=== PATIENT | female | born 1970 | race Caucasian/White ===

== ENCOUNTER 2023-05-15 16:22 | Outpatient (OUT) | payer BC, SELFPAY | END 2023-05-15 16:23 | disposition home or self-care (01) | PROVIDERS: PCP Family Medicine | DX: E11.9 Type 2 diabetes mellitus without complications (principal) | CPT/HCPCS: G0108 ==

== ENCOUNTER 2023-06-06 21:16 | Outpatient (REF) | payer BC, SELFPAY ==
--- OUTSIDE RECORDS SUMMARY | 2023-06-06 21:21 | XMS_ITS | CCD ---
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 Name Role Phone Giorgio Rodriguez Primary Care Physician DR TERRY GILLIS Attending Unavailable DR TERRY GILLIS Consulting Unavailable DR TERRY GILLIS Admitting Unavailable DR GIORGIO RODRIGUEZ Primary Care Unavailable Allergies Allergy Classification Reported Allergen(s) Allergy Type Date of Onset Reaction(s) Facility (2 sources) Penicillin; Translations: [penicillin] Drug Allergy Unknown (qualifier value) [facility] (1 source) Penicillins Drug allergy (disorder) 4 [facility] Repository Medications Current Medications Medication Drug Class(es) Dates Sig (Normalized) Sig (Original) ciprofloxacin 500 mg oral tablet (1 source) Quinolone Antimicrobial Start: 07-27-2021 Cipro 500 mg Tab See Instructions, Take 1 tab day prior to procedure and 1 tab day of procdure - afterwards, # 2 tab(s), Refills(s) 0, Pharmacy: [facility]/pharmacy #[id number], 162, cm, 07/21/21 15:04:00 EDT, Height/Length Dosing, 90.9, kg, 07/21/21 15:04:00 EDT, Weight Dosing Start Date: 07/27/21 Status: Ordered glimepiride 4 mg oral tablet (2 sources) Sulfonylurea Start: 07-21-2021 take 1 mg by mouth once daily glimepiride 4 mg Tab mg tab(s), Oral, Daily, Refills(s) 0 Start Date: 07/21/21 Status: Ordered Problems Problem Classification Problem Date Documented Da te Episodic/Chronic Genitourinary symptoms and ill-defined conditions (3 sources) Stress incontinence (female) (male); Translations: [Genuine stress incontinence] Onset: 07-21-2021 Chronic Genitourinary symptoms and ill-defined conditions (4 sources) Urgent desire to urinate; Translations: [Urgency of urination] Onset: 07-21-2021 Episodic Other nervous system disorders (1 source) Chronic pain; Translations: [Other chronic pain] Onset: 08-12-2021 Chronic Other screening for suspected conditions (not mental disorders or infectious disease) (4 sources) Encounter for screening for malignant neoplasm of cervix; Translations: [ENC SCREENING MALIG NEOPLASM CERV] Onset: 06-01-2022 Episodic Unclassified (2 sources) Finding of sensation of bladder 07-21-2021 Urinary tract infections (3 sources) Cystitis; Translations: [Cystitis, unspecified without hematuria] Onset: 07-21-2021 Episodic Results Test Name Value Interpretation Reference Range Facil ity PAP ACOG PANEL 2: 30 to 65on 06-08-2022 . . Normal [facility] Comment on above: Result Comment: Perf ormed at: WB Performed By: #### [id number] #### [facility] [address] [place] [address] Dr. Jef Haro Age Gdln ACOG Testing 30-65 Normal [facility] Comment on above: Performed By: #### [id number] #### [facility] [address] [address] [address] Jef Haro DIAGNOSIS: Comment Normal [facility] Comment on above: Result Comment: NEGA TIVE FOR INTRAEPITHELIAL LESION OR MALIGNANCY. Performed at: WB Performed By: #### [id number] #### [facility] [address] [address] [address] Jef Haro HPV Aptima Negative Normal Negative [facility] Comment on above: Result Comment: This nucleic acid amplification test detects fourteen high-risk HPV types (16,18,31,33,35,39,45,51,52,56,58,59,66,68) without differentiation. Performed at: =G Performed By: #### [id number] #### [facility] [address] [address] [address] Jef Haro HPV Genotype Reflex Comment Normal [facility] Comment on above: Result Comment: Crit eria not met, HPV Genotype not performed. Performed at: WB Performed By: #### [id number] #### [facility] [address] [address] [address] Jef Haro Methodology: Comment Normal [facility] Comment on above: Result Comment: This liquid based ThinPrep(R) pap test was screened with the use of an image guided system. Performed at: WB Performed By: #### [id number] #### [facility] [address] [address] [address] Jef Haro Note: Comment Normal [facility] Comment on above: Result Comment: The Pap smear is a screening test designed to aid in the detection of premalignant and malignant conditions of the uterine cervix. It is not a diagnostic procedure and should not be used as the sole means of detecting cervical cancer. Both false-positive and false-negative reports do occur. . Performed at: WB Performed By: #### [id number] #### [facility] [address] [address] [address] Jef Haro Performed by: Comment Normal [facility] Comment on above: Result Comment: Yolie Lal, Household Personal Assistant (ASCP) Performed at: WB Performed By: #### [id number] #### [facility] [address] [place] [address] Dr. Jef Haro Specimen adequacy: Comment Normal [facility] Comment on above: Result Comment: Sati sfactory for evaluation. Endocervical and/or squamous metaplastic cells (endocervical component) are present. Performed at: WB Performed By: #### [id number] #### [facility] [address] [address] [address] Jef Haro Coding Summary.on 08-13-2021 Coding Summary. CD:[id number] Gh 0bWw+PGhlYWQ+MI8ACHJtC 66ihLUbmA9TE8vFGR7OFWR OBQFHRM9RYY3yuCM3TNxkX 2VybiAv DugkeNPbXD58XOw5VUI7nA bcPZzxvW5fjVCpV7d0ZjLf QH14jW02YSpgKZXqQoV7Pu ZpbjsgbWFy C4crWmPzuJPbBma+PHRhYm xlIHdpZHRoPScxMDAlJyBz oHnjCK4yUh9xSICnRIOqlC xhcHNlOiBj j0csPQSoYXvyVU3tzNnhK7 ZsvFY3HIAhk5v6Nn37aCG+ MHOoQOG3sZtuMMefk055Uw Sgc4byWHG0 jMEjUAtiRDE4I09dy4L6MO PsLLGkWCN6uZX9lV0jfUbs wejzF9NxhTYzJhP5WLL3tX FfpW9rnNah ypdtkV7gDfb+L66BQD3VBI UUNZ6GUzy1O5WuXtyzoAX+ SJ06FVTgVP36wCGwjMJcb3 kyrHe4VyHd MBBkBAG3hDmdKOtyz1SoBA OcA34vqAZas6L4DQUptRyr fQAlBmRmdJG5aP3fZRltyq cvf6eadwqt Fcmnt6jgcs58uV12O94nLR itNATbHNI8JNJgIXAzmXmc ky1gtC0sQr7+GWbla5xgt8 rgxVq7GmOk KJWkmzQltDhiIMB4c5FfZy 73I2YvbPpxv6YoHwp6do36 lXKxv7H3yTD8HLcoWTJiwK 4tNAtuYmM0 CYWtLeUpvR70oVIgCTeyVa 9zxGuxlYyqXR6pUEGcxtgk AMBgtJ5vBBZyjCFaeCjgBW 4wNTBpbjtm y502OuKoEJU7AKPueRIbL1 CxoB1oHiSbHLAxXKKcN3Fe rTKfBTcwN928LWfyRrK0VF ZefuIxH5Ro OOYbkJaxHnJ1s5Q8Os2Hp2 CgdhykUFK8QDstRLZ2OjGi QtNwQoT7N5YuWot5WRByxD ohVD7gN3Do QOXaufqcawaehVA2GFUdNW EscB49tNTdWYmtZd8rj3X8 w357YHEeEQDlvP21Rw1vaD ogMTBwdCBU fA5vcdryy6wfnjnnNmXmJT ImITm3DYr9AKOcbAwjMuVd PCL2KmU0VHR2vHZnnK4hzB wpixmmwW1b Oyc+N60miJ1xYES7VSY2jh uwSDUgceQgHZ15HK29F3Fy PjwvdGFibGU+PGRpdiBzdH vnIZ2rQgOp e4oqq0RiPOiuZ2OeJRMmAK kjGcn5TTWmPVE5oRM5eN9p TYFmAOljz7L0bAH0I5Symv Haib3fx6uo GJWxBDirW55uiJNut8C7ZZ FwpRK1WJDkvCpyRdLibI53 Oyc+CNIjqYrmt2PqDyvll3 kur0epjVr6 RrHyJYRripMqnWmfYQQ2u6 GsAu67B81iXUowOLRwWWIz KIOiDWIvuKtnpj9ezV5wMv 8+PGNvbCB3 zNA4nV8dILUvZzX3UDiwW3 12NzCdqMOvBsvtj7fxx8lm dQh0KxYaGTJxhlZxcNjpNI X0z7XtZv67 V04gPYrqLLSyIWUlHJUfRT UyqPnkol9euU0lEx2+PC9j g5fdiw20vI11iEL+PHRkIH Y2qLcvZSmy CUMqtX7cOBcuKbZ6PAFnDa VurV24yQOmXHohBe1neOcv oNhuFK9mPXCwyidas000Qr Tba9evNOGw qIPmMHjlQRR2U55zx4S5CP YbTORnYRO9rWF2iL6yeOsp bjogbGVmdDsgdmVydGljYW sxRBulO066 IHRvcDsnPlBhdGllbnQgTm SkYBv7Y3IwWkw1FZDprIns TL5wuRCxJJnvPi9unFawrB znXO2fVBWq kinvv355BzCee9xzYKHjaP DgVBrzGWI0P19qu6Z4SRXs SJZrGSI6rQD8sR3jeXkiuk ogbGVmdDsg jwEypZsuVLfnUGwpC495QY RvcDsnPkJpcnRoIERhdGU6 AG71GL58yNVgr9P6sDZ6G3 BhZGRpbmct txqeqXZ4SXTgQAHvnI07Pf 5pmWyvQl6kKEQjGFD2LPEc pEErX1BjgR3fImUfZGHoQJ VtI0HrdUDm RDxgT284LClhAyX2LQHnno SvB1JhDVAqqRvqXoM2w8A1 Bp7CE0C5OQ41NQ39pNVdn9 X5zZT2G2Ev MINwwayzdmzicHM4UTKgOC SggY80Gh2tyUfoSj0oLXHg WXG8LWJphYXiY6KkuZ8wLx AjMDAwMDAw J2YvjLPvFYllO269NPccXi F0WSSatdYkQ8ScMWDwrOao KiY6k0C3Ck5OCJj1AP92VT 10aTYwm8O0 hMC4R8BpZOBhccatsfjpvT R0PKHsKNWfaX95Rq8wnWpo Af4eCPBcWDN4NTFfbYRwK6 VlkM2wShSb DTSmCNYaH0TlyLGeGIktM5 78TLriEbJ9WTOtxjOdW3Rw QLWotVabJcT1y9Y8Rv3USA YsWL26UNF3 qQZ4ZK29CM24V8UdMsmrhV FibGU+PHRhYmxlIHdpZHRo HEffQAEzSnUgwFhwKL9pUi 9yZGVyLWNv sEsobOFvPtKel5fkLCVhAL fdNH6yyJekP7LtoEX6KNUn e3g6Vd85F33bI5RycQA+PG MhrUF6fRS2 oT6pZpCjZgG4FYcxR561Yu EayOLsEnkzs8hpw8wcrWb5 LqI0CPErkoQfiCtjXKF3y8 MyRv11S70g IHdpZHRoPSIxNSUiIHZhbG ljkm9rsE6tMs6+PGNvbCB3 xGU7iD9nCuVoSxO5XJtiK0 49InRvcCIv Uvgqi8mth0rfsKu9ElPwZU KokvIgwBixINC5g7KdZa30 C7QbvQkaw9XfSuw4st43jP Ufl6O0oWO5 G8PqOBIccrfpqAEimTohDX 4kZPUdmefbYGVzbH2sXKCa F1m1EaIyJiO9UAjyX2Cvkk M1KVClwJIm LJhfGGC3P24rr7O7LKBgVR JaJAY3cBM5lB5cgRvsrcjc bGVmdDsgdmVydGljYWwtYW vkF611XTPa tLjpOOKptW5jKLVdwKEnlM vpPZ8xCCAqfnzmTjBQILhh IENIRVJJRTwvdGQ+PHRkIH C3eArsQWva FFJtpW7eCMEvF8f9CjHwOj N5OHdxE6EySJIjuyzuVy56 wS4oTvTnWqJ2XBuiA9Nbvh H3ZBObyGMr KWpfODZ5M19vo6X6TLQpXZ TcFTJ1wBJ9yT7lcEleuhuh bGVmdDsgdmVydGljYWwtYW raX117ACNu wUbqVmKaEcDcEiD7XkO8S8 IqEds2QMWxfWyyPO1vhDXc XBgbNw4qmGorbFjdDC5kHG BpbjtwYWRk nV8yERAwtADpaYjaEB4nQM Plelzzb470UvTmHWS6YNSk iQAnB3OilW5hRfBnVEZlVS WdD0ExgFJl QNnrJ595XWdoJhE5OZCpzg VcQ0DqIWSgnNsmMpX8t9O9 Ft12YGCBXBZhpyoknSO+PH JqAHM3dCdp RAstZHZtaV4aIHKrJ1p4Gw JtXlP1YIagB2QgCINzqldv Pf56aN3vKuYeQrK7ZHlfL5 TukzP1SCHc mEUyCZglGTG0J05fg9M5BS BiGZPgBWU5oKJ7zU3biFjm bjogbGVmdDsgdmVydGljYW afVYzxC714 IHRvcDsnPkZlbWFsZTwvdG Q+AGOhKBP8lGvkBSpgRXMp vM2jYNCkY3t5DdAvGjO3PI wyI7VpWDDd vrocGm53dF2mMlRuSwA1HO esR8WjlwI9IEVfxUUhHIyi QWV2Z79mw3D5IEVrFZHwXY T4yWH8sD1f bGlnbjogbGVmdDsgdmVydG hbJAhaYHjjP617VTNqkXji Tt87aHNfsJxfsgI7D3UkJt wvdHI+PC90 VHLeBB86aFUyuMWie6fadR f6JhNcXXYkPVI0yCxnNZnk i0LcQADaD63hiEIec6A0HZ NvbGxhcHNl LtRciTA3wP9fCFikarict3 izghsjLgsnv9zuml10wQ85 J99wVWqyVBFwWATrBBFnYR VwyZmjzg5q jK2hYh0+UQAthZO2cXM4jS 8wLmPyBpC7SDulA441GxLt tSWcMwnga8tob5qvpVh2Ha IwJSIgdmFs qYhcOET8p5JaKa98G87uMB dpZHRoPSIyMCUiIHZhbGln zr3gmP9pYt7+WY8ks9icoz 77kG78bJQ+ RXJbJWU4vJekFEsnZVNayZ 2gNJtmWjJ6SIBrJcOtlZ68 qMMwNGtwGr4luAgeeDcrZK 4wNTBpbjtm g160HmMkz4hfBQXylRHxII cuJIZ0Y08oe4S1ZXRpMAZv BCM0pJS1iK2xuAmgpxiicM VmdDsgdmVy sOjvRMwmEWqnG971EDDxrV yvCfYamOWaI5qarbWGFW2k OjwvdGQ+SJXjXQD2sNpsWA ylATXgsQ2v OPAgK3u1UxVmUmL6JFnwR1 UolrT9TBMpxVVmBZZdnEGD oU3jfhoto1xyaijhGiOuEI CpQKb2PWb9 NOZvaBzzGqHnZEU4TpS2FN D7pVYsyH1sgOmititvwO3i Oyc+RklOOjwvdGQ+PHRkIH H4mEwkOKhm JYQldR6zFBShA2y5KyVpBa X9CTngZ2CglzA4ENPieQMs MTLvaXXEjI5kxucqg2anlg ogIzAwMDAw BSk5SPh7YFBsaZwyIePoCC F7EzG8NMY1xPJceA8jcOqs milgxB7jCax+TVJOOjwvdG Q+PHRkIHN0 oUnjTNncYXMwjJ3cJQMlW5 u7OrErOsD9XOzmB0ZlddG0 PFTdfJBeSEXnxWOFnU7kum mhg3sjezug ApLiHNIxODs4LYz7YWOccT shYyIkUUY5UhQ6MQT2tAJu aF0qoHdkuehfeH8tIij+UG I3WNI2DY55 PJ17R8XcLukqbDApbIE+PH RhYmxlIHdpZHRoPScxMDAl WkHhbVylQM3nKx7dVYAkOU NvbGxhcHNl OiBj (more content not included)... Normal [facility] Consent for Procedure/Surger yon 08-12-2021 Consent for Procedure/Surgery [id number] 0CD:127 Normal [facility] Consent for Treatmenton 07-24 Consent for Treatment [id number]#[id number] 0CD:127 Normal [facility] Inpatient Patient Summaryon 08-12-2021 Inpatient Patient Summary [address] [address] Clinical Summary Person Information Name: KAELA PRIETO Age: 51 Years : 1970 Sex: Female PCP: Giorgio Rodriguez MD Marital Status: Race: White Ethnicity: Non- or Language: Hungarian Visit Id: Visit Reason: URINARY INCONTINENCE UGERNECY AND INCOMPLETE EMPTYING Speciality: Acuity: Enc Type: Outpatient Med Service: Surgery Arrival: 08/12/2021 07:41:05 Discharge: Dispo Type: Address: [address] [place] [address] [address] [id number] Provider Notes: Diagnosis: Problems Active Cystitis Feeling of incomplete bladder emptying Stress incontinence Urinary urgency Smoking Status: Functional Status: Sensory Deficits: History of Falls: Mobility Assistance Prior to Admission: ADLs: Current Level of Assistance for Self-Care/Mobility: Cognitive Status: Allergies penicillin (Unknown) Laboratory or Other Results This Visit (last charted value for your 08/12/2021 visit) No Laboratory or Other Results This Visit Measurements: Height: 162 cm Weight: Blood Pressure: Not Valued / Not Valued BMI: Procedures No Procedures Documented Immunizations No Immunizations Documented This Visit Final Med List: ciprofloxacin (Cipro 500 mg Tab) Take 1 tab day prior to procedure and 1 tab day of procdure - afterwards. Refills: 0. glimepiride (glimepiride 4 mg Tab) By Mouth every day. Care Team Members: Attending Physician: Edwin FU MD Consulting Physician: Referring Physician: Edwin FU MD Follow up: With: Address: When: AUGUSTA CHAKRABORTY [address] [facility] [address] [place] [phone] Business (1) Comments: Please make an appointment with Maia Chakraborty for about 4 to 6 weeks from now. She can assess any improvement in the urinary symptoms. If the pelvic discomfort symptoms continue, perhaps we should consider some physical therapy in that area. Please finish your antibiotics and have a great day. Patient Education Information: EU - Cystoscopy with Urethral Dilation Discharge Instructions (Custom) Normal [facility] IntraOperative Documentson 0 08-12-2021 IntraOperative Documents [id number] 0CD:127 Normal [facility] Main OR Intraoperative Recor don 08-12-2021 Main OR Intraoperative Record IntraOp Document Type FTURO Summary Primary Physician: Edwin FU MD Finalized Date/Time: 08/12/21 08:30:44 Pt. Name: KAELA PRIETO/Sex: 1970 Female Med Rec #: [id number] Physician: Edwin FU MD Financial #: [id number] Pt. Type: O Room/Bed: / Admit/Disch: 08/12/21 07:41:05 - Institution: Case Times FTURO Entry 1 Patient Times In Room 08/12/21 08:16:00 Out Room 08/12/21 08:30:00 Procedure Times Start 08/12/21 08:20:00 Stop 08/12/21 08:27:00 Anesthesia Times Last Modified By: Jelly DELATORRE, TRINITYORMamta 08/12/21 08:29:44 Case Attendance FTURO Entry 1 Entry 2 Entry 3 Case Attendee Edwin FU MD, RN, TRINITYOR, Mamta Puri Becenti CLINICAL DATA ASSOCIATE, Haydee Roe Role Performed Surgeon - Primary Stockroom Worker - Primary Scrub - Primary Time In 08/12/21 08:16:00 08/12/21 08:16:00 08/12/21 08:16:00 Time Out 08/12/21 08:30:00 08/12/21 08:30:00 08/12/21 08:30:00 Procedure CYSTOSCOPY LOCAL WITH CYSTOSCOPY LOCAL WITH CYSTOSCOPY LOCAL WITH URETHRAL DILATION(.) URETHRAL DILATION(.) URETHRAL DILATION(.) Comments Last Modified By: RHYS Reaves RN, Lou Ann Blank RN, CNOR, Lou Ann Blank RN, CNOR, Lou Ann 08/12/21 08:29:45 08/12/21 08:29:45 08/12/21 08:29:45 Surgical Procedures FTURO Entry 1 Procedure Description Procedure CYSTOSCOPY LOCAL WITH Modifiers . URETHRAL DILATION Surgeon Description CYSTO URETHRAL DILATION W PELVIC EXAM Primary Procedure Yes Primary Surgeon Edwin FU MD Start 08/12/21 08:20:00 Stop 08/12/21 08:27:00 Anesthesia Type Local Surgical Service Urology Wound Class 2 - Clean-Contaminated Last Modified By: RHYS Reaves RN, Lou Ann 08/12/21 08:30:02 General Case Data FTURO Pre-Care Text: Classifies surgical wound, implements aseptic technique, initiates traffic control Entry 1 Case Information OR URO 1 FT Case Level None Wound Class 2 - Clean-Contaminated Specialty Urology Preop Diagnosis URINARY INCONTINENCE Postop Same As Preop No UGERNECY AND INCOMPLETE EMPTYING Postop Diagnosis URINARY INCONTINENCE Outcomes Met? Yes UGERNECY AND INCOMPLETE EMPTYING urethral stenosis Last Modified By: RHYS Reaves RN, Lou Ann 08/12/21 08:30:41 Post-Care Text: The patient is free from signs and symptoms of infection EU IntraOp - FTURO Pre-Care Text: Implements protective measures prior to operative or invasive procedure, confirms identity before the operative or invasive procedure, verifies operative procedure, surgical site, and laterality Entry 1 EU Perioperative Protocols Procedure(s) CYSTOSCOPY LOCAL WITH Patient Identity ID Band Check, Patient URETHRAL DILATION(.) Verified (select at Participation least 2): Consents / H and P HandP, Surgery/Procedure Operative Site N/A Verified Consent Marking Verified Surgical Site Yes Laterality Verified n/a Verified Procedure Verified Yes Correct Patient Yes Position Verified Availability Equipment, Medication Time Out Edwin FU MD, Verified (If Participants Jelly DELATORRE, TRINITYOR, Mamta Applicable) Teresa Puri CST, Gwen E Time Out Complete 08/12/21 08:18:00 Allergies Reviewed? Yes Allergies Reviewed Self/Patient With Body Position Low Lithotomy Prep Area perenium Prep Agents Betadine Solution Skin. Condition Warm, Unable to Description clohting on Visualize Additional None Specimens Collected Vitals - EU Blood Pressure 154/80 Pulse 80 bpm Respirations 16 br/min SPO2 EBL 0 IandO - EU Total Intake 0 mL Total Output 0 mL Outcomes Met? Yes Last Modified By: RHYS Reaves RN, Lou Ann 08/12/21 08:24:05 Post-Care Text: The patient is free from signs and symptoms of injury caused by extraneous objects Sign Out FTURO Entry 1 Before Patient Leaves OR Nurse verbally Yes Nurse verbally n/a confirms with the confirms with the team the name of team that the procedure(s) instrument, sponge, recorded and needle counts are correct (or N/A) Nurse verbally n/a Nurse verbally Yes confirms with the confirms with the team how the team whether there specimen is labeled are any equipment (including patient problems to be name), if applicable addressed Sign Out Complete 08/12/21 08:27:00 Last Modified By: RHYS Reaves RN, Lou Ann 08/12/21 08:27:32 Case Comments Finalized By: RHYS Reaves RN, Lou Ann Document Signatures Signed By: RHYS Reaves RN, Lou Ann 08/12/21 08:30 Normal [facility] Main OR Preoperative Recordo n 08-12-2021 Main OR Preoperative Record Holding Area Document Type FTURO Summary Primary Physician: Edwin FU MD Finalized Date/Time: 08/12/21 08:23:28 Pt. Name: KAELA PRIETO Krysta/Sex: 1970 Female Med Rec #: [id number] Physician: Edwin FU MD Financial #: [id number] Pt. Type: O Room/Bed: / Admit/Disch: 08/12/21 07:41:05 - Institution: Case Times Holding FTURO Pre-Care Text: Verifies consent for planned procedure, identifies individual values and wishes concerning care, includes family members in perioperative teaching Secures patient's records' belongings, and valuables, maintains patient's dignity and privacy, and maintains patient confidentiality Entry 1 In Holding 08/12/21 07:53:00 Outcomes Met? Yes Last Modified By: Denis Arias LPN 08/12/21 07:53:24 Post-Care Text: The patient participates in decisions affecting his or her perioperative plan of care The patient's right to privacy is maintained Surgery Checklist FTURO Entry 1 Patient Birthday, ID Band Procedure History and Physical, Identification: Check, Patient Verification: Surgical Consent, With Participation Patient NPO after Midnight: n/a Personal Items: Glasses, Jewelry Personal Items rings Complaints of Pain: No Comment: Skin Integrity Unable to Visualize Vitals - EU Blood Pressure 154/80 Pulse 80 bpm Respirations 16 br/min SPO2 RN Reviewed Yes Last Modified By: RHYS Reaves RN, Lou Ann 08/12/21 08:23:26 General Comments: Temp 36.1 Finalized By: RHYS Reaves RN, Lou Ann Document Signatures Signed By: RHYS Reaves RN, Lou Ann 08/12/21 08:23 Normal [facility] Operative Reporton 2 Operative Report Patient: ROBERT PRIETO Age: 51 years Sex: Female : 1970 Associated Diagnoses: None Author: Edwin FU MD Procedure Operative Information Details: Date/ Time: 08/12/2021 08:31:00. Pre-Op Dx: Stress Incontinence - N39.3, Urgency - R39.15, Urethral Stricture - Other Unspecified - N35.9. Post-Op Dx: Same. Anesthesia Type: Local. Procedure: Local Cystoscopy with Urethral Dilation. Complications: None. Risks/Benefits/Informe d Consent: Surgical risks, benefits, details of the procedure have been explained to the patient, Full informed consent has been obtained. Intraoperative Information Prepped: Patient is brought back to the endoscopy suite, Patient is placed in modified dorso/lithotomy position, Patient prepped in the usual fashion with Betadine solution, 2% Xylocaine Jelly is placed per Urethra, After waiting several minutes the Cystoscope is introduced. The Urethra is: Tight, Tight at 16 Fr. . The Bladder is: Normal, Trabeculated Mild (1), , but there are diffuse areas of raised, yellowish pink areas consistent with cystitis cystica. No tumor, no stones. . The ureteral orifices: Show efflux of clear urine. The Urethra was dilated to: 30 Pashto w/ sounds. Devices Implanted: None. Removal: Cystoscope is removed, The patient tolerated it well. Postoperative Information Discharge: Patient is discharged home with antibiotic coverage, Follow up arranged, F/U with Maia Chakraborty . Reassessment of urinary sx will take place. If the pelvic discomfort continues, perhaps some physical therapy (? trigger points) could be considered. Do not feel her pelvic symptoms are due to bladder etiology. , On exam, tender on vaginal exam, universally, including downward pressure towards rectum, and bilaterally, as well as anteriorly. . Normal [facility] Comment on above: Result Comment: Elec tronically Signed By: Edwin FU MD\.br\Date and Time Signed: 08/12/21 08:34 EDT Outpatient Surgery Discharge Instructionon 08-12-2021 Outpatient Surgery Discharge Instruction [address] [address] Patient Discharge Instructions PERSON INFORMATION Name: KAELA PRIETO Date of : 1970 Current Date: 08/12/2021 08:31:38 PHYSICIANS Admitting Physician: Edwin FU MD Comment: Discharge Diagnosis: KAELA PRIETO has been given the following list of follow-up instructions, prescriptions, and patient education materials: IF UNABLE TO CONTACT YOUR PHYSICIAN AND YOU FEEL IT IS AN EMERGENCY, GO TO THE NEAREST EMERGENCY ROOM OR CALL 911 Follow up: With: Address: When: AUGUSTA PALMER [address] [place] [phone] Business (1) Comments: Please make an appointment with Maia Chakraborty for about 4 to 6 weeks from now. She can assess any improvement in the urinary symptoms. If the pelvic discomfort symptoms continue, perhaps we should consider some physical therapy in that area. Please finish your antibiotics and have a great day. Comment: PATIENT EDUCATION INFORMATION Instructions: Cystoscopy with Urethral Dilation ? Voiding after the procedure: there may be some pain, urethral bleeding, burning, urgency, frequency and blood tinged urine following the procedure. These symptoms usually resolve within 2-5 days. Drink the amount of fluid it takes to keep the urine pink to yellow or clear in color. Drinking enough water and fluids will help to ease any discomfort after your procedure. ? If you are having problems that seem out of the ordinary, please call. ? If unable to contact your physician and you feel it is an emergency, go to the nearest emergency room or call 911 ? Diet ? you may resume your normal diet. ? Activity ? you may resume your normal activities ? Call if you have a fever over 100 degrees IDA Franks CHERIE, have received the attached patient education materials/instructions and have verbalized understanding: May we do a follow up call? Yes No I was present when discharge instructions were given Patient Signature Date Clinican/Nurse Signature ___ Date You may receive a survey from [facility] asking you to rate your care experience. Your feedback is important and will help us understand what we do well and how we can improve the quality of care we provide to you, your loved ones and our community. It?s an honor to serve you. Thank you for choosing [facility] Normal [facility] Formson 07-26-2021 Forms [id number] 0CD:127 Normal [facility] Physician Referralon 022 Physician Referral [id number] 01 [id number]:127 Normal [facility] Urology Office/Clinic Noteon 07-22-2021 Urology Office/Clinic Note Chief Complaint referred for incontinence, cystitis. HPI Staff Kaela is here today by [facility] for incontinence and chronic cystitis. PVR was 28ml. Dysuria: _Denies Incomplete bladder emptying: _Yes Hematuria: _Denies Frequency: _Every 2-3 hours Urgency: _Yes Nocturia: _2-3 times a night due to the urge. Stream: _steady until the end then it gets weak and dribbles Leaking: _Yes Post void dripping: _Yes Wearing pads/ Depends: _Denies Urge incontinence: _rarely Stress incontinence: _Yes Incontinence without Sensory Awareness: _Denies Abdominal pain: _Denies Flank pain: _Denies Sexual complaints: _Pt states sex has been painful for several years. History of Present Illness staff HPI reviewed and agree. Review of Systems PHQ Score Initial Depression Screen Score: 0 no fever, chills, malaise, myalgia. no rash/lesions. no chest pain, palpitations, or SOB. no abdominal pain, nausea, vomiting. no unilateral calf swelling, redness, pain Physical Exam Vitals & Measurements HR: 77(Peripheral) RR: 16 BP: 123/71 HT: 162.0 cm HT: 162 cm WT: 90.9 kg WT: 90.9 kg BMI: 34.64 General: nontoxic, NAD Mouth: moist mucosa Lungs: normal respiratory effort Cardio: regular rate, good distal perfusion Abdomen: nondistended, no suprapubic distention or tenderness, no CVA tenderness Neurologic: Grossly normal Skin: No rashes or suspicious lesions Assessment/Plan 1. Urinary urgency (R39.15: Urgency of urination) Moderate. occasional UUI if doesn't get to restroom in time. also has bothersome nocturia x2-3. Discussed with patient the bladder irritants to avoid. pt will think about if sx are bothersome enough that she would like to try any treatment (ie medication) assuming normal cysto 2. Stress incontinence (N39.3: Stress incontinence (female) (male)) Mild while coughing or sneezing. Mild. s/p hysterectomy about 3 yrs ago. discussed importance of pelvic floor health. declines formal PFPT. would like to attempt on her own at home using phone sarah we discussed. 3. Feeling of incomplete bladder emptying (R39.14: Feeling of incomplete bladder emptying) stream starts strong but dribbles at the end and starts/stops. has to lean forward and apply pressure to the bladder to feel she empties completely. PVR IO today was 28mL. Patient is able to urinate every 2-3 hours. 4. Cystitis (N30.90: Cystitis, unspecified without hematuria) Patient states during pelvic exam with Dr. Gillis bladder was tender when touched. She says this is the same area that is painful during intercourse. Dr Gillis told her she may have chronic cystitis causing the pain. Recommended for the patient to get a cystoscopy for further eval. Will discuss if any imaging warranted with MD. The risks and benefits for cystoscopy have been discussed. The risks include bleeding, infection, and irritation of the bladder and urinary channel, among others. The patient, after being informed of procedural details and after questions have been answered, wishes to proceed. Full informed consent has been obtained. Will order Local anesthesia. Discussed that if significant narrowing found may perform UD. Follow-up With When Contact Information AUGUSTA CHAKRABORTY PA-C, URL [address] [address] Business (1) Additional Instructions: Patient Education Overactive Bladder, Adult I, Concepcion Loza , personally scribed for Augusta Chakraborty on 07/21/2021 15:25:40. . Documentation recorded by the scribludin Loza accurately reflects the services(s) I performed and decisions made by me. Authenticated by Augusta Chakraborty PA-C on 07/21/2021 15:37:36. Problem List/Past Medical History Ongoing Cystitis Feeling of incomplete bladder emptying Stress incontinence Urinary urgency Historical No qualifying data Procedure/Surgical History Breast surgery, Hemorrhoid, Hysterectomy, Tonsillectomy. Medications glimepiride 4 mg Tab, Oral, Daily Allergies penicillin (Unknown) Social History Tobacco 10 or more cigarettes (1/2 pack or more)/day in last 30 days Tobacco Use:., 07/21/2021 Family History Diabetes mellitus type 2: Father and Brother. Heart disease: Father and Brother. High cholesterol: Father and Brother. Immunizations Vaccine Date Status SARS-CoV-2 (COVID-19) Ad26 vaccine 05/19/2021 Recorded SARS-CoV-2 (COVID-19) Ad26 vaccine 04/28/2021 Recorded Lab Results Ambulatory Point of Care Results Blood Urine Dipstick: Negative (07/21/21 14:54:00) Glucose Urine Dipstick: Negative (07/21/21 14:54:00) Ketones Urine Dipstick: Negative (07/21/21 14:54:00) Leukocytes Urine Dipstick: Negative (07/21/21 14:54:00) Nitrite Urine Dipstick: Negative (07/21/21 14:54:00) Protein Urine Dipstick: Negative (07/21/21 14:54:00) Specific [place] Urine Dipstick: 1.025 (07/21/21 14:54:00) Urine Appearance Urine Dipstick: Clear (06/24 (more content not included)... Normal [facility] Comment on above: Result Comment: Elec tronically Signed By: AUGUSTA CHAKRABORTY PA-C\.br\Date and Time Signed: 07/22/21 09:17 EDT Ambulatory Visit Summaryon 0 07-21-2021 Ambulatory Visit Summary KAELA PRIETO :1970 Visit Date:07/21/2021 Ambulatory Visit Instructions Your Diagnosis Urinary urgency Stress incontinence Feeling of incomplete bladder emptying Cystitis Tests Performed Urnls Dip Stick Auto w/o Microscopy POC 69130 Your Care Team Attending Physician - AUGUSTA CHAKRABORTY PA-C Primary Care Physician - Giorgio Rodriguez MD Referring Physician - Terry GILLIS DO This Is Your Medications List Contact prescribing physician if questions or concerns glimepiride (glimepiride 4 mg Tab) Procedures Performed Breast surgery, Hemorrhoid, Hysterectomy, Tonsillectomy. Discharge Vitals Heart Rate (Peripheral) 77 Respiratory Rate 16 Blood Pressure 123/71 Height 162.0 cm Height 162 cm Weight 90.9 kg Weight 90.9 kg BMI 34.64 What to do next You Need to Schedule the Following Appointments Follow Up with AUGUSTA CHAKRABORTY PA-C, URL When: Where: [address] [facility] [place] [address] [place] (1) Medications What How Much When Instructions Unchanged glimepiride (glimepiride 4 mg Tab) Every day Contact prescribing physician if questions or concerns Test Results Urnls Dip Stick Auto w/o Microscopy POC 95384 (07/21/2021) Blood Urine Dipstick - Negative Glucose Urine Dipstick - Negative Ketones Urine Dipstick - Negative Leukocytes Urine Dipstick - Negative Nitrite Urine Dipstick - Negative Protein Urine Dipstick - Negative Specific [place] Urine Dipstick - 1.025 Urine Appearance Urine Dipstick - Clear Urine Color Urine Dipstick - Yellow Urobilinogen Urine Dipstick - Normal 0.2-1 EU/dl pH Urine Dipstick - 6 Allergies penicillin (Unknown) Problems Ongoing - Any problem that you are currently receiving treatment for. Cystitis Feeling of incomplete bladder emptying Stress incontinence Urinary urgency Education Materials Overactive Bladder, Adult Overactive bladder refers to a condition in which a person has a sudden need to pass urine. The person may leak urine if he or she cannot get to the bathroom fast enough (urinary incontinence). A person with this condition may also wake up several times in the night to go to the bathroom. Overactive bladder is associated with poor nerve signals between your bladder and your brain. Your bladder may get the signal to empty before it is full. You may also have very sensitive muscles that make your bladder squeeze too soon. These symptoms might interfere with daily work or social activities. What are the causes? This condition may be associated with or caused by: ? Urinary tract infection. ? Infection of nearby tissues, such as the prostate. ? Prostate enlargement. ? Surgery on the uterus or urethra. ? Bladder stones, inflammation, or tumors. ? Drinking too much caffeine or alcohol. ? Certain medicines, especially medicines that get rid of extra fluid in the body (diuretics). ? Muscle or nerve weakness, especially from: ? A spinal cord injury. ? Stroke. ? Multiple sclerosis. ? Parkinson's disease. ? Diabetes. ? Constipation. What increases the risk? You may be at greater risk for overactive bladder if you: ? Are an older adult. ? Smoke. ? Are going through menopause. ? Have prostate problems. ? Have a neurological disease, such as stroke, dementia, Parkinson's disease, or multiple sclerosis (MS). ? Eat or drink things that irritate the bladder. These include alcohol, spicy food, and caffeine. ? Are overweight or obese. What are the signs or symptoms? Symptoms of this condition include: ? Sudden, strong urge to urinate. ? Leaking urine. ? Urinating 8 or more times a day. ? Waking up to urinate 2 or more times a night. How is this diagnosed? Your health care provider may suspect overactive bladder based on your symptoms. He or she will diagnose this condition by: ? A physical exam and medical history. ? Blood or urine tests. You might need bladder or urine tests to help determine what is causing your overactive bladder. You might also need to see a health care provider who specializes in urinary tract problems (urologist). How is this treated? Treatment for overactive bladder depends on the cause of your condition and whether it is mild or severe. You can also make lifestyle changes at home. Options include: ? Bladder training. This may include: ? Learning to control the urge to urinate by following a schedule that directs you to urinate at regular intervals (timed voiding). ? Doing Kegel exercises to strengthen your pelvic floor muscles, which support your bladder. Toning these muscles can help you control urination, even if your bladder muscles are overactive. ? Special devices. This may include: ? Biofeedback, which uses sensors to help you become aware of your body's signals. ? Electrical stimulation, which u (more content not included)... Normal [facility] Patient Educationon 07-22-19 Patient Education Obstetrics and Gynecology Overactive Bladder, Adult Overactive bladder refers to a condition in which a person has a sudden need to pass urine. The person may leak urine if he or she cannot get to the bathroom fast enough (urinary incontinence). A person with this condition may also wake up several times in the night to go to the bathroom. Overactive bladder is associated with poor nerve signals between your bladder and your brain. Your bladder may get the signal to empty before it is full. You may also have very sensitive muscles that make your bladder squeeze too soon. These symptoms might interfere with daily work or social activities. What are the causes? This condition may be associated with or caused by: ? Urinary tract infection. ? Infection of nearby tissues, such as the prostate. ? Prostate enlargement. ? Surgery on the uterus or urethra. ? Bladder stones, inflammation, or tumors. ? Drinking too much caffeine or alcohol. ? Certain medicines, especially medicines that get rid of extra fluid in the body (diuretics). ? Muscle or nerve weakness, especially from: ? A spinal cord injury. ? Stroke. ? Multiple sclerosis. ? Parkinson's disease. ? Diabetes. ? Constipation. What increases the risk? You may be at greater risk for overactive bladder if you: ? Are an older adult. ? Smoke. ? Are going through menopause. ? Have prostate problems. ? Have a neurological disease, such as stroke, dementia, Parkinson's disease, or multiple sclerosis (MS). ? Eat or drink things that irritate the bladder. These include alcohol, spicy food, and caffeine. ? Are overweight or obese. What are the signs or symptoms? Symptoms of this condition include: ? Sudden, strong urge to urinate. ? Leaking urine. ? Urinating 8 or more times a day. ? Waking up to urinate 2 or more times a night. How is this diagnosed? Your health care provider may suspect overactive bladder based on your symptoms. He or she will diagnose this condition by: ? A physical exam and medical history. ? Blood or urine tests. You might need bladder or urine tests to help determine what is causing your overactive bladder. You might also need to see a health care provider who specializes in urinary tract problems (urologist). How is this treated? Treatment for overactive bladder depends on the cause of your condition and whether it is mild or severe. You can also make lifestyle changes at home. Options include: ? Bladder training. This may include: ? Learning to control the urge to urinate by following a schedule that directs you to urinate at regular intervals (timed voiding). ? Doing Kegel exercises to strengthen your pelvic floor muscles, which support your bladder. Toning these muscles can help you control urination, even if your bladder muscles are overactive. ? Special devices. This may include: ? Biofeedback, which uses sensors to help you become aware of your body's signals. ? Electrical stimulation, which uses electrodes placed inside the body (implanted) or outside the body. These electrodes send gentle pulses of electricity to strengthen the nerves or muscles that control the bladder. ? Women may use a plastic device that fits into the vagina and supports the bladder (pessary). ? Medicines. ? Antibiotics to treat bladder infection. ? Antispasmodics to stop the bladder from releasing urine at the wrong time. ? Tricyclic antidepressants to relax bladder muscles. ? Injections of botulinum toxin type A directly into the bladder tissue to relax bladder muscles. ? Lifestyle changes. This may include: ? Weight loss. Talk to your health care provider about weight loss methods that would work best for you. ? Diet changes. This may include reducing how much alcohol and caffeine you consume, or drinking fluids at different times of the day. ? Not smoking. Do not use any products that contain nicotine or tobacco, such as cigarettes and e-cigarettes. If you need help quitting, ask your health care provider. ? Surgery. ? A device may be implanted to help manage the nerve signals that control urination. ? An electrode may be implanted to stimulate electrical signals in the bladder. ? A procedure may be done to change the shape of the bladder. This is done only in very severe cases. Follow these instructions at home: Lifestyle ? Make any diet or lifestyle changes that are recommended by your health care provider. These may include: ? Drinking less fluid or drinking fluids at different times of the day. ? Cutting down on caffeine or alcohol. ? Doing Kegel exercises. ? Losing weight if needed. ? Eating a healthy and balanced diet to prevent constipation. This may include: ? Eating foods that are high in fiber, such as fresh fruits and vegetables, whole grains, and beans. ? Limiting foods that are high in fat and processed sugars, such as fried and sweet foods. General instructions ? Take ove (more content not included)... Normal [facility] Vital Signs Date Time Vital Sign Value Performing Clinician Oneida latham 07-21-2021 14:51-0400 Blood Pressure Location AUGUSTA CHAKRABORTY [facility] 07-21-2021 14:51-0400 Diastolic blood pressure 71 mm[Hg] AUGUSTA CHAKRABORTY [facility] 07-21-2021 14:51-0400 Heart rate 77 /min AUGUSTA CHAKRABORTY [facility] 07-21-2021 14:51-0400 Respiratory rate 16 /min AUGUSTA CHAKRABORTY [facility] 07-21-2021 14:51-0400 Systolic blood pressure 123 mm[Hg] AUGUSTA CHAKRABORTY [facility] [employer] Encounters Encounter Date Encounter Type Care Provider Facility Start: 06-01-2022 End: 06-01-[address] TERRY GILLIS Facility: Start: 08-12-2021 End: 08-12-2021 Patient encounter procedure Edwin [facility] [employer] Start: 07-21-2021 End: 07-21-2021 Patient encounter procedure AUGUSTA CHAKRABORTY [facility] Procedures Date Procedure Procedure Detail Performing Clinician Breast surgery (qualifier value) AUGUSTA CHAKRABORTY Hemorrhoids (disorder) WOODY CHAKRABORTY Hysterectomy AUGUSTA CHAKRABORTY Tonsillectomy AUGUSTA CHAKRABORTY Immunizations Immunization Date Immunization Notes Care Provider Abhishek gibbons 05-19-2021 SARS-CoV-2 (COVID-19 ) Ad26 vaccine, recombinant AUGUSTA CHAKRABORTY [facility] [place] 04-28-2021 SARS-CoV-2 (COVID-19 ) Ad26 vaccine, recombinant AUGUSTA CHAKRABORTY [facility] Payers Date Payer Category Payer Unknown [id number] 1959 Unknown [id number] Social History Date Type Detail Facility Start: 07-21-2021 Tobacco smoking status Heavy t obacco smoker (finding) [facility] Sex Assigned At Female [facility] History and physical note 08-12-2021 Note Date & Type Note Facility 08-12-2021 Note [id number] #[id number] [facility] Clinical Note 08-12-2021 Note Date & Type Note Facility 08-12-2021 Note Cystoscopy with Uret hral Dilation ? Voiding after the procedure: there may be some pain, urethral bleeding, burning, urgency, frequency and blood tinged urine following the procedure. These symptoms usually resolve within 2-5 days. Drink the amount of fluid it takes to keep the urine pink to yellow or clear in color. Drinking enough water and fluids will help to ease any discomfort after your procedure. ? If you are having problems that seem out of the ordinary, please call. ? If unable to contact your physician and you feel it is an emergency, go to the nearest emergency room or call 911 ? Diet ? you may resume your normal diet. ? Activity ? you may resume your normal activities ? Call if you have a fever over 100 degrees [facility] Hospital Discharge instructions 08-12-2021 Note Date & Type Note Facility 08-12-2021 Hospital Discharg e instructions Patient Education 08/12/2021 08:30:15 [facility] - Cystoscopy with Urethral Dilation Discharge Instructions (Custom) Cystoscopy with Urethral Dilation Voiding after the procedure: there may be some pain, urethral bleeding, burning, urgency, frequency and blood tinged urine following the procedure. These symptoms usually resolve within 2-5 days. Drink the amount of fluid it takes to keep the urine pink to yellow or clear in color. Drinking enough water and fluids will help to ease any discomfort after your procedure. If you are having problems that seem out of the ordinary, please call. If unable to contact your physician and you feel it is an emergency, go to the nearest emergency room or call 911 Diet you may resume your normal diet. Activity you may resume your normal activities Call if you have a fever over 100 degrees Follow Up Care 07/27/2021 12:01:15 With:AUGUSTA CHAKRABORTY Address: [address] [place] [address] Business (1) When: Unknown Comments:Please make an appointment with Maia Chakraborty for about 4 to 6 weeks from now. She can assess any improvement in the urinary symptoms. If the pelvic discomfort symptoms continue, perhaps we should consider some physical therapy in that area.Please finish your antibiotics and have a great day. [facility] Hospital Discharge instructions 07-21-2021 Note Date & Type Note Facility 07-21-2021 Hospital Discharg e instructions Patient Education 07/21/2021 15:22:58 Overactive Bladder, Adult Overactive Bladder, Adult Overactive bladder refers to a condition in which a person has a sudden need to pass urine. The person may leak urine if he or she cannot get to the bathroom fast enough (urinary incontinence). A person with this condition may also wake up several times in the night to go to the bathroom. Overactive bladder is associated with poor nerve signals between your bladder and your brain. Your bladder may get the signal to empty before it is full. You may also have very sensitive muscles that make your bladder squeeze too soon. These symptoms might interfere with daily work or social activities. What are the causes? This condition may be associated with or caused by: Urinary tract infection. Infection of nearby tissues, such as the prostate. Prostate enlargement. Surgery on the uterus or urethra. Bladder stones, inflammation, or tumors. Drinking too much caffeine or alcohol. Certain medicines, especially medicines that get rid of extra fluid in the body (diuretics). Muscle or nerve weakness, especially from: ?A spinal cord injury. ?Stroke. ?Multiple sclerosis. ?Parkinson's disease. Diabetes. Constipation. What increases the risk? You may be at greater risk for overactive bladder if you: Are an older adult. Smoke. Are going through menopause. Have prostate problems. Have a neurological disease, such as stroke, dementia, Parkinson's disease, or multiple sclerosis (MS). Eat or drink things that irritate the bladder. These include alcohol, spicy food, and caffeine. Are overweight or obese. What are the signs or symptoms? Symptoms of this condition include: Sudden, strong urge to urinate. Leaking urine. Urinating 8 or more times a day. Waking up to urinate 2 or more times a night. How is this diagnosed? Your health care provider may suspect overactive bladder based on your symptoms. He or she will diagnose this condition by: A physical exam and medical history. Blood or urine tests. You might need bladder or urine tests to help determine what is causing your overactive bladder. You might also need to see a health care provider who specializes in urinary tract problems (urologist). How is this treated? Treatment for overactive bladder depends on the cause of your condition and whether it is mild or severe. You can also make lifestyle changes at home. Options include: Bladder training. This may include: ?Learning to control the urge to urinate by following a schedule that directs you to urinate at regular intervals (timed voiding). ?Doing Kegel exercises to strengthen your pelvic floor muscles, which support your bladder. Toning these muscles can help you control urination, even if your bladder muscles are overactive. Special devices. This may include: ?Biofeedback, which uses sensors to help you become aware of your body's signals. ?Electrical stimulation, which uses electrodes placed inside the body (implanted) or outside the body. These electrodes send gentle pulses of electricity to strengthen the nerves or muscles that control the bladder. ?Women may use a plastic device that fits into the vagina and supports the bladder (pessary). Medicines. ?Antibiotics to treat bladder infection. ?Antispasmodics to stop the bladder from releasing urine at the wrong time. ?Tricyclic antidepressants to relax bladder muscles. ?Injections of botulinum toxin type A directly into the bladder tissue to relax bladder muscles. Lifestyle changes. This may include: ?Weight loss. Talk to your health care provider about weight loss methods that would work best for you. ?Diet changes. This may include reducing how much alcohol and caffeine you consume, or drinking fluids at different times of the day. ?Not smoking. Do not use any products that contain nicotine or tobacco, such as cigarettes and e-cigarettes. If you need help quitting, ask your health care provider. Surgery. ?A device may be implanted to help manage the nerve signals that control urination. ?An electrode may be implanted to stimulate electrical signals in the bladder. ?A procedure may be done to change the shape of the bladder. This is done only in very severe cases. Follow these instructions at home: Lifestyle Make any diet or lifestyle changes that are recommended by your health care provider. These may include: ?Drinking less fluid or drinking fluids at different times of the day. ?Cutting down on caffeine or alcohol. ?Doing Kegel exercises. ?Losing weight if needed. ?Eating a healthy and balanced diet to prevent constipation. This may include: ?Eating foods that are high in fiber, such as fresh fruits and vegetables, whole grains, and beans. ?Limiting foods that are high in fat and processed sugars, such as fried and sweet foods. General instructions Take [id number] and prescription medicines only as told by your health care provider. If you were prescribed an antibiotic medicine, take it as told by your health care provider. Do not stop taking the antibiotic even if you start to feel better. Use any implants or pessary as told by your health care provider. If needed, wear pads to absorb urine leakage. Keep a journal or log to track how much and when you drink and when you feel the need to urinate. This will help your health care provider monitor your condition. Keep all follow-up visits as told by your health care provider. This is important. Contact a health care provider if: You have a fever. Your symptoms do not get better with treatment. Your pain and discomfort get worse. You have more frequent urges to urinate. Get help right away if: You are not able to control your bladder. Summary Overactive bladder refers to a condition in which a person has a sudden need to pass urine. Several conditions may lead to an overactive bladder. Treatment for overactive bladder depends on the cause and severity of your condition. Follow your health care provider's instructions about lifestyle changes, doing Kegel exercises, keeping a journal, and taking medicines. This information is not intended to replace advice given to you by your health care provider. Make sure you discuss any questions you have with your health care provider. Document Released: 02/04/2010 Document Revised: 08/01/2019 Document Reviewed: 04/26/2018 [employer] Patient Education 2019 [employer]. Follow Up Care 06/25/2021 10:48:50 With:AUGUSTA CHAKRABORTY PA-C, URL Address: [address] [place] [phone] Business (1) When: Unknown [facility] Evaluation + Plan note Note Date & Type Note Facility Evaluation + Plan note No data available for this section [facility] Evaluation + Plan note Note Date & Type Note Facility Evaluation + Plan note Future Appointments Appointment Date:09/15/2021 03:15:00 PM Scheduled Provider:AUGUSTA CHAKRABORTY PA-C Location:[facility] Appointment Type:URO Office Visit [facility] Summary Purpose Family History No Family History Records FoundNo Family History Records Found Advance Directives No Advanced Directives Records FoundNo Advanced Directives Records Found Additional Source Comments INFORMATION SOURCE (unrecogn ized section and content) DATE CREATED AUTHOR 09/13/2021 [facility] DATE CREATED AUTHOR AUTHOR'S ORGANIZ ATION 06/08/2022 [facility] FOR RECORDS PERTAINING TO PATIENTS WHO ARE OR HAVE BEEN ENROLLED IN A CHEMICAL DEPENDENCY/SUBSTANCEABUSE PROGRAM, SOME INFORMATION MAY BE OMITTED. This clinical summary was aggregated from multiple sources. Caution should be exercised in using it in the provision of clinical care. This summary normalizes information from multiple sources, and as a consequence, information in this document may materially change the coding, format and clinical context of patient data. In addition, data may be omitted in some cases. CLINICAL DECISIONS SHOULD BE BASED ON THE PRIMARY CLINICAL RECORDS. [employer] provides no warranty or guarantee of the accuracy or completeness of information in this document.
[2023-06-10 09:10] LABS: Age Gdln ACOG Testing Note (.); HPV Aptima Negative (Negative); IGP, Aptima HPV, rfx 16/18,45 Note (.)
== END 2023-06-06 21:17 | disposition home or self-care (01) ==
LOC: LAB 21:16
PROVIDERS: PCP Family Medicine; Visit Provider Obstetrics & Gynecology
DX: Z01.419 Encounter for gynecological examination (general) (routine) without abnormal findings (principal)
CPT/HCPCS: 87624; G0145

== ENCOUNTER 2023-06-13 15:06 | Outpatient (OUT) | payer BC, SELFPAY ==
--- NOTE | 2023-06-13 15:10 | XR_ITS ---
[facility] [place] [id number] Patient Name: TAWANA PRIETO MRN: [id number] date: 1970 Sex: F Assigned Patient Location: [facility] Current Patient Location: Accession/Order Number: [id number] Exam Date: 06/13/2023 15:35 Report Date: 06/14/2023 07:17 At the request of: TERRY GOODRICH Procedure: XR DEXA axial skeleton EXAMINATION: XR DEXA axial skeleton HISTORY: post menopausal state Z76.0 COMPARISON: No relevant comparison available. TECHNIQUE: Dual-energy X-ray absorptiometry (DXA) was performed. FINDINGS: SPINE ANALYSIS: Average bone mineral density is 1.176 g/cm2. T-score (standard deviation relative to young adult mean): 0.0 . HIP ANALYSIS: Lowest bone mineral density is within the left femoral neck, 0.887 g/cm2. T-score (standard deviation relative to young adult mean): -1.1 . XR/XR DEXA axial skeleton IMPRESSION: [employer] Classification: Osteopenia - Moderate Fracture Risk Electronically authenticated by: MANUELA RIVERO Date: 06/14/2023 07:17
--- NOTE | 2023-06-13 15:12 | MM_ITS ---
Patient Name: TAWANA PRIETO MR#: [id number] : 1970 Exam Date: 06/13/2023 Ordering Doctor: DR Bob Gillis . RADIOLOGY REPORT PROCEDURE: MM TOMOSYNTHESIS SCREENING BI COMPARISON: MG MAMM RT DIAG W CAD, 09/21/2016. MG MAMM JIGNA SCRN W CAD DIG, 03/23/2016. MG MAMM JIGNA SCRN W CAD DIG, 03/06/2014. INDICATIONS: screening Calculator Name NCI Breast Cancer Risk Assessment Tool 5 Year Breast Cancer Risk 1.30% Lifetime Breast Cancer Risk 10.30% Personal Breast Cancer No Personal Ovarian Cancer No Treatments None Family Cancers None LOCATION: [facility] BREAST COMPOSITION: Scattered areas fibroglandular density. FINDINGS: DIAGNOSTIC CATEGORY 2--BENIGN FINDING: RIGHT BREAST: No significant suspicious finding. LEFT BREAST: No significant suspicious finding. Scattered benign-appearing calcifications are present. RECOMMENDATIONS: ROUTINE MAMMOGRAM AND CLINICAL EVALUATION IN 12 MONTHS. PLEASE NOTE: A NORMAL MAMMOGRAM DOES NOT EXCLUDE THE POSSIBILITY OF BREAST CANCER. A CLINICALLY SUSPICIOUS PALPABLE LUMP SHOULD BE BIOPSIED. Dictated by: Jean Mast M.D. on 06/15/2023 at 07:29 Approved by: Jean Mast M.D. on 06/15/2023 at 07:34
== END 2023-06-13 15:07 | disposition home or self-care (01) ==
LOC: RAD 15:07
PROVIDERS: PCP Family Medicine; Visit Provider Obstetrics & Gynecology
DX: Z12.31 Encounter for screening mammogram for malignant neoplasm of breast (principal); Z78.0 Asymptomatic menopausal state; M85.80 Other specified disorders of bone density and structure, unspecified site
CPT/HCPCS: 77063; 77067; 77080

== ENCOUNTER 2023-09-04 16:30 | Outpatient (REF) | payer BC, SELFPAY ==
--- OUTSIDE RECORDS SUMMARY | 2023-09-07 15:34 | XMS_ITS | CCD ---
Author Organization [facility] Care Team Providers Care Environmental Services Attendant Name Role Phone Giorgio Rodriguez Primary Care Physician DR TERRY GILLIS Attending Unavailable DR TERRY GILLIS Consulting Unavailable DR TERRY GILLIS Admitting Unavailable DR GIORGIO RODRIGUEZ Primary Care Unavailable TERRY GILLIS Attending Unavailable [facility] Primary Care Provider [phone] Allergies Allergy Classification Reported Allergen(s) Allergy Type Date of Onset Reaction(s) Facility (2 sources) Penicillin; Translations: [penicillin] Drug Allergy Unknown (qualifier value) [facility] (1 source) Penicillins Drug allergy (disorder) 4 [facility] Repository (2 sources) Penicillin G Drug Allergy 4 [facility] Medications Current Medications Medication Drug Class(es) Dates Sig (Normalized) Sig (Original) ciprofloxacin 500 mg oral tablet (1 source) Quinolone Antimicrobial Start: 2 Cipro 500 mg Tab See Instructions, Take 1 tab day prior to procedure and 1 tab day of procdure - afterwards, # 2 tab(s), Refills(s) 0, Pharmacy: [facility]/pharmacy #[id number], 162, cm, 07/21/21 15:04:00 EDT, Height/Length Dosing, 90.9, kg, 07/21/21 15:04:00 EDT, Weight Dosing Start Date: 07/27/21 Status: Ordered glimepiride 4 mg oral tablet (4 sources) Sulfonylurea Start: 2 End: 4 take 1 mg by mouth once daily glimepiride 4 mg Tab mg tab(s), Oral, Daily, Refills(s) 0 Start Date: 07/21/21 Status: Ordered methylPREDNISolone 4 mg oral tablet (1 source) Corticosteroid Start: 4 take 1 tablet by mouth once Methylprednisolone (Medrol (Percy)) 4 mg tablets,dose pack Active 0 PO per package directions 1 June 10, 2023 12:00am PO PER PKG DIR for 6 days Mounjaro 2.5 MG/0.5ML solution pen-injector (2 sources) Start: 4 Mounjaro 2.5 MG/0.5ML solution pen-injector Tirzepatide (1 source) Start: 4 Tirzepatide (Mounjaro) 2.5 mg/0.5 mL pen injector Active MG SUBCUT June 10, 2023 12:00am Problems Problem Classification Problem Date Documented Date Episodic/Chronic Diabetes mellitus without complication (1 source) Type 2 diabetes mellitus; Translations: [Type 2 diabetes mellitus without complications] 06-10-2023 Chronic Disorders of lipid metabolism (1 source) Hyperlipidemia; Translations: [Hyperlipidemia, unspecified] 06-10-2023 Chronic Genitourinary symptoms and ill-defined conditions (3 sources) Stress incontinence (female) (male); Translations: [Genuine stress incontinence] Onset: 07-21-2021 Chronic Genitourinary symptoms and ill-defined conditions (4 sources) Urgent desire to urinate; Translations: [Urgency of urination] Onset: 07-21-2021 Episodic Other lower respiratory disease (2 sources) Cough; Translations: [Acute cough] 06-10-2023 Episodic Other nervous system disorders (1 source) Chronic pain; Translations: [Other chronic pain] Onset: 08-12-2021 Chronic Other screening for suspected conditions (not mental disorders or infectious disease) (6 sources) Encounter for screening for malignant neoplasm of cervix; Translations: [Patient encounter status] Onset: 06-01-2022 Episodic Pleurisy; pneumothorax; pulmonary collapse (2 sources) Pleurisy; Translations: [Pleurisy] 06-10-2023 Episodic Residual codes; unclassified (2 sources) Postmenopausal state; Translations: [Asymptomatic menopausal state] 06-06-2023 Episodic Unclassified (2 sources) Finding of sensation of bladder 07-21-2021 Urinary tract infections (3 sources) Cystitis; Translations: [Cystitis, unspecified without hematuria] Onset: 07-21-2021 Episodic Results Test Name Value Interpretation Reference Range Facil ity PAP ACOG PANEL 2: 30 to 65on 06-08-2022 . . Normal [facility] Comment on above: Result Comment: Perf ormed at: WB Performed By: #### [id number] #### [facility] [address] [address] [address] Jef Haro Age Gdln ACOG Testing 30-65 Normal [facility] Comment on above: Performed By: #### [id number] #### [facility] [address] [address] [address] Jef Haro DIAGNOSIS: Comment Normal [facility] Comment on above: Result Comment: NEGA TIVE FOR INTRAEPITHELIAL LESION OR MALIGNANCY. Performed at: WB Performed By: #### [id number] #### [facility] [address] [address] [address] Jef Haro HPV Aptima Negative Normal Negative [facility] Comment on above: Result Comment: This nucleic acid amplification test detects fourteen high-risk HPV types (16,18,31,33,35,39,45,51,52,56,58,59,66,68) without differentiation. Performed at: =G Performed By: #### 4 [id number] #### [facility] [address] [address] [address] Jef Haro HPV Genotype Reflex Comment Normal [facility] Comment on above: Result Comment: Crit eria not met, HPV Genotype not performed. Performed at: WB Performed By: #### [id number] #### [facility] [address] [address] [address] Jef Haro Methodology: Comment Normal [facility] Comment on above: Result Comment: This liquid based ThinPrep(R) pap test was screened with the use of an image guided system. Performed at: WB Performed By: #### [id number] #### [facility] [address] [address] [address] Jef Haro Note: Comment Normal [facility] Comment on above: Result Comment: The Pap smear is a screening test designed to aid in the detection of premalignant and malignant conditions of the uterine cervix. It is not a diagnostic procedure and should not be used as the sole means of detecting cervical cancer. Both false-positive and false-negative reports do occur. . Performed at: WB Performed By: #### [id number] #### [facility] [address] [place] [address] Dr. Jef Haro Performed by: Comment Normal [facility] Comment on above: Result Comment: Yolie Lal, Composite Bond Worker (ASCP) Performed at: WB Performed By: #### [id number] #### [facility] [address] [place] [address] Dr. Jef Haro Specimen adequacy: Comment Normal [facility] Comment on above: Result Comment: Sati sfactory for evaluation. Endocervical and/or squamous metaplastic cells (endocervical component) are present. Performed at: WB Performed By: #### [id number] #### [facility] [address] [place] [address] Dr. Jef Haro Coding Summary.on 08-13-2021 Coding Summary. CD:[id number] Gh 0bWw+PGhlYWQ+HP6QPXRuY 00ihFNimC4NF5aPOU6KEWC IHMRWHD7UTM6ujVQ4IWeuL 2VybiAv YkblkWRwBA75IAm4SJM1qJ xmDEpgpK8ylTVxU4y1WmTo HX08jZ23MIhpBWLmDcQ0Nx ZpbjsgbWFy H3hcWzPoxFIpGbp+PHRhYm xlIHdpZHRoPScxMDAlJyBz hMggVF4zQh3sDRIpSPEibN xhcHNlOiBj l8vtCEApCWzzIL1lvAbmF8 DmbPS5ZTFkl4w7Nx03wXK+ IDBoGMH2wZvnQBsvk547Ic Yrt0pvRSQ8 cQLpDLchTTX8H75il6M7ZB RcWUEdQYF2qTO4kU2mqIek qrneX7OqmJJfLxL1SCR6nJ FgiL6fbWev ljgigN6aCwv+J35DXT0QVS YTXC8VKoo7N6EcWjxkmJW+ GL13UATjWH48iROtoJTnw2 uyvVb4GpSu TIIdOEM9yZvnKSkgh6IjEO DvL01iqSYkz7P3FXQinJli kUXiOkPghOQ5aL7fYMntsj koe5ooexpm Esemi9wdnz87yF69E05xGQ ugLPPdDRL5TXJzGBPzqRbh as0dyI8xFp1+IViqa2fsw8 iplIg9CiHf DGTlafBpmGetIZQ8i9ZkKu 37P9VqwTdph0KeVqy5dm63 sQEfe8V2wVQ5SPxoCZMbqP 9oDEcjTbU0 IDDqGhWmtZ45rBJpRCpbHm 8ogUkfeRzhZK4qRUIbollj UJUfyR6jWOYhpRNazGulRW 4wNTBpbjtm z967EtStHOI2PGMsvNFeD5 VizE1cGdLfPICdWDFxS7Mp gUItAEtrH382KHuqQdU1RW AxdrCnA1Xv WZGedYnyIuN4j5U2Vw1Lo9 LekhpzAIZ2UPrcCTE3AgTx BwJwAeR7U1WrXec7QSLtrP hsQX4rR0Ma QJBdcigwuheglRD6DZQrQT FvaB30gUDlUAhyAh7ai2U2 j462CGFxUJIcgZ78Ws3ycZ ogMTBwdCBU wT8zzoygf6tzmhnpSgOlUX NvWAn9JId3ZVGrcOlsWeQr LBU1XjN8IRK0xOOhhX4sgF ymnfuloE5l Oyc+R80mkY9oVBY5HMT0te krAZTyraMdCG79HB10G7Me PjwvdGFibGU+PGRpdiBzdH qhXN8tBdGg t5knc1LsOOecQ3TkBOFnPK tpIia5MYHlFTI2pWQ3fU0x GEPwLGwmq5C4qBF4Z9Uljt Rbvu4xl1iw MMEpJNwfR58bnOAgx2J3FU BdbNM4IGNmnIqpNrSkrT17 Oyc+PWLtoJzvs1YaWuovp8 ivg6exfPq5 NeJhWTIqbdOebNszGED6t1 JfRg32Z97iAGoeMXZxQGGe BJLbSPPtuNizgl3jcU9nRj 8+PGNvbCB3 vLV6iV1sTXPeCnX4IVuaF0 99UfMrjUSmJaevo6ycv7rn uMg8UnYcVIMqugXkiKamXY T5h3MjOd06 G77aNVqzPPBlFQPsOLZtHB IcyGpprn2zaO4pHa6+PC9j a4bgla75eB86nSC+PHRkIH G5zHyiGQgp IIRhfB5aNAjcMbP0IOEbMz XnwD81uRQkPSxbGn1xiHoe gAjmHU4wSWSgyrusp756Bz Eff1svNGKu lPUkQGpkVFQ6S46vp7Q9HN TfKWKyBJO8dSA1rW9jxGgq bjogbGVmdDsgdmVydGljYW yuTMhnK072 IHRvcDsnPlBhdGllbnQgTm QlHTu9A0SoZnb1NHZzdDss PU0peOXuFFikOl2jnSiiiR rwAS6hRSIy axvkx552AvHhd0taSRPhxX VjFDatESY6O41ew9U0LIHp APQxHSQ3wZO6cA4wtBadcw ogbGVmdDsg noYliOjzQHxjLSvpQ543FT RvcDsnPkJpcnRoIERhdGU6 PP76XS20bDImm2G1cPP5W1 BhZGRpbmct jveltNG2WYTsNIHffL35Ke 2mxMmbBw4eHVCrKUE3KENr rVHoY6RjvT4xZaAcEUExXC HvW3EgsQRc VNfxX347RFcxSsL5HSDvyu MkR9BqIMDekFrbHfW1e1C5 Ej4LA4Z4PX78CQ15rJPne3 A6yMU2Y1Db ZHNkiflpkcftlWV1HTJsPI IhrT34Mi8nyBjlWh5kSRUm BXP2ITLpmLWcM2JdpP9fJk AjMDAwMDAw A5MlkLKnVImqR527ZArjIx M0NJAylzQxL9BmUQLkjPhn DrC2b6D7Sj9BKOl2CT75HQ 73fHJfa0P1 eUO4Z6QzRJNmlynttoeeeM M1RFJnNMTodP25Ve2msKsu Ba3eFIVsSOB6WMRnoQTtC1 YbaQ2vIkTu GQMyJCTeT4TwiRCaOObpD1 24ZHwbWkT3WLRgccOzM6Qe NVXsnLghSgX1d9L0Vz6APO MtZM63EVR2 uFW6JV87PU69C5GlJsxqyE FibGU+PHRhYmxlIHdpZHRo PHmkKQWmOwOedNygZP4aKd 9yZGVyLWNv uBpboWEiGvWjv1xlVNWsQD kfWU4sdCdtR0QnmSZ6VTFu j5a4Sz31I70eC6EfnZQ+PG CalWX1rFC1 bG7aEiLnPnU3RBfiX789Pa ObcOTvKinsw2equ3opvZq8 EkL5IHJjtcXrsWmcLKH3p2 BkVn52S28k IHdpZHRoPSIxNSUiIHZhbG zatv3brF9jWr8+PGNvbCB3 dHO0aV6aWsWnQnR3BZyqG9 49InRvcCIv Twqvf6oaq2oqyKa7GdKqWN DllsBlzBxuAKB7g4YaUd94 F2PdfGrpo6MzSpa2wy08lL Rsm2P2oPR9 Q4GiENMqvukdtAFzwGytEJ 2aASAzrdnqKFFzuC0lGIAo M0m0GnBaHdQ2XAbbK9Ebtu U1QIQtiKVa PYamVHO0W09qu5A3VPTtEE BiYIB9cZH8kG9rwQgqdmxo bGVmdDsgdmVydGljYWwtYW mmP849DLGw bCgoGPAihZ0zUGQkjKXnaC guJX9sHBIgsphkIyGIPFkb IENIRVJJRTwvdGQ+PHRkIH P6kNzjQWrn GXXjkC1yKLOxR4u7MdNvOg B5CZdfK5SlRKHzqaqrSf31 cS6zKlQeIqT7RUphO8Dwef I5LJJceXLx YMnxCYS9R42cu1T2DTEyAS WiWDV4tCH9uE2glJohftpn bGVmdDsgdmVydGljYWwtYW piT929SLJp uEucRcSvPoCqCaX0DpZ7N6 OnNur1TDFzdRbmRM9wnTUr KMcdFh4igPwvkHzpVW3nMJ BpbjtwYWRk cR3fHJQojSZgqDalLU8jZJ Npfqiru552HbGuFEQ9WJWb gTQxP5UfpZ3kFaZvHYUbZT VyV0EpgVNp VYgcR978TInjOsM9PJAxmk TrW4WgNBSacGosPjJ7s4Z1 Zz51VFWMMIDxglewzKM+PH UdLAY1xTlh UEjvMPKhgX3gBWEeT6b4Vo TuMmK5WCzoG6EpPSUtxbvu Il85kF0eNvYwUqS7CJijK8 ZhjqA5XWFx jLXxURsgHJN1C83lu9T0WH FuVYWjRIN3kEV5iJ1bcFgh bjogbGVmdDsgdmVydGljYW wtKCukT397 IHRvcDsnPkZlbWFsZTwvdG Q+LGLuQEF5pWngASbcWHVn tG3gQFMeV2x7VePmPkX2SY uiY0YrPDEe gwfoTm60aH2yVvCxIaV9EF wyS6TpiwQ0KLVxuWJxKFyl HSC6J50ej8V7UDOkDWNsWP M4mQN2rR3c bGlnbjogbGVmdDsgdmVydG raRZdnGKkgL001XFDirOve Nk26cAWivBxppaY8J1LcXl wvdHI+PC90 FVOzSA19nNTawSCdm4vvtN i2IhEsKVMeDQF2zWhiFQpj b9NkBYUbB41eqDPdj8C6WU NvbGxhcHNl YlLzvPR9xA9dPFpqinxio0 mhjkrpGpcoz5fllj03dY92 P53sOThzTBFmHCJxUSVlNV JucIjnra8z qN9ePm9+EDBbnTS9yXY2rZ 6vPlFoMsE9FPraV609ZbUu xCOnFztgu9mus5dwkVd2Nd IwJSIgdmFs xEngILG3v3NgWn72A81kDE dpZHRoPSIyMCUiIHZhbGln mh2svG0fTb5+OZ7sz0xitz 05rV76sOB+ EALoAFK8oBvuRGccTWOswY 7dGSfcBzN4WVWfJbWujA64 xMBeITsoXa5omMissOwyQE 4wNTBpbjtm s814YlPrh2mkEDPocXJvAN loDGY2N63uy4X9MZJpIQKv DYW5uJK4wU1jqTxidxuutD VmdDsgdmVy iXevHDzlCDohP003KHAvdC dmYxXcwAZyZ0xayyIECT2o OjwvdGQ+HJBkNLZ8qHfuTP yeYSLvpP5k XXTzZ9f6EpIxLyB2BZrwS3 RyswW7MVNelWQqJYNjdWCN rH9qpzisd3pmhdjvRuVvWA WfAQh8IUn2 HVVmuEboXxHsXLO7YwK3UC W4qVPxdD3esQopfbuvqS4o Oyc+RklOOjwvdGQ+PHRkIH B4kAduIFco TZOvrG3tKHQfQ4q2IiQwIk F2UWogE9TmnuY6TBEypBMd DNZijEFClP8axavai1zzhv ogIzAwMDAw CMg0AUl3VBLweZkyBwAbHE K1MvP3FDA3cZMmxS4maXye aqzrdW7zQxc+TVJOOjwvdG Q+PHRkIHN0 eNpjVPtbHKSfmL9aBDJzG6 f1DiYiAkQ2BHhtW0DvieH7 XENjiBXiVUXgkEALvL7fyf gnn4wteokn MiRrWVSeQQw1GNq5KYHduO lxNiSfWVY3LqG6JVM7uFOl iY4ayDlhnmvbmL7qNns+UG B4SUO6RS67 XY71D4JjXijrcRJvvPI+PH RhYmxlIHdpZHRoPScxMDAl WaRlsZtnDC1qLt1oHWNaPU NvbGxhcHNl OiBj (more content not included)... Normal [facility] Consent for Procedure/Surger yon 08-12-2021 Consent for Procedure/Surgery [id number] 0CD:127 Normal [facility] Consent for Treatmenton 07-24 Consent for Treatment [id number] 0CD:127 Normal [facility] Inpatient Patient Summaryon 08-12-2021 Inpatient Patient Summary [address] [address] Clinical Summary Person Information Name: KAELA GARCIA Age: 51 Years : 1970 Sex: Female PCP: Giorgio Rodriguez MD Marital Status: Race: White Ethnicity: Non- or Language: Paraguayan Visit Id: Visit Reason: URINARY INCONTINENCE UGERNECY AND INCOMPLETE EMPTYING Speciality: Acuity: Enc Type: Outpatient Med Service: Surgery Arrival: 08/12/2021 07:41:05 Discharge: Dispo Type: Address: [address] [place] [address] [place] [id number] Provider Notes: Diagnosis: Problems Active Cystitis Feeling [...] Follow up: With: Address: When: AUGUSTA CHAKRABORTY [address] [place] [phone] Business (1) Comments: Please make an appointment [...] Dilation Discharge Instructions (Custom) Normal [facility] IntraOperative Documentson 0 08-12-2021 IntraOperative Documents [id number] 0CD:127 Normal [facility] Main OR Intraoperative Recor don 08-12-2021 Main OR Intraoperative Record IntraOp Document Type FTURO Summary Primary Physician: Edwin FU MD Finalized Date/Time: 08/12/21 08:30:44 Pt. Name: KAELA GARCIA /Sex: 1970 Female Med Rec #: [id number] Physician: Edwin FU MD Financial #: [id number] Pt. Type: O Room/Bed: / Admit/Disch: 08/12/21 07:41:05 - Institution: Case Times FTURO Entry 1 Patient Times In Room 08/12/21 08:16:00 Out Room 08/12/21 08:30:00 Procedure Times Start 08/12/21 08:20:00 Stop 08/12/21 08:27:00 Anesthesia Times Last Modified By: RHYS Reaves RN, Lou Ann 08/12/21 08:29:44 Case Attendance FTURO Entry 1 Entry 2 Entry 3 Case Attendee Edwin FU MD, RN, TRINITYOR, Mamta Moore CST, Haydee Roe Role Performed Surgeon - Primary Gas Worker - Primary Scrub - Primary Time In 08/12/21 08:16:00 08/12/21 08:16:00 08/12/21 08:16:00 Time Out 08/12/21 08:30:00 08/12/21 08:30:00 08/12/21 08:30:00 Procedure CYSTOSCOPY LOCAL WITH CYSTOSCOPY LOCAL WITH CYSTOSCOPY LOCAL WITH URETHRAL DILATION(.) URETHRAL DILATION(.) URETHRAL DILATION(.) Comments Last Modified By: Jelly DELATORRE, TRINITYORMamta RN, CNOR, Lou Ann Blank RN, TRINITYORMamta 08/12/21 08:29:45 08/12/21 08:29:45 08/12/21 08:29:45 Surgical [...] Out Edwin FU MD, Verified (If Participants RHYS Reaves RN, Lou Applicable) Teresa Puri CST, Gwen E Time [...] Lou Ann 08/12/21 08:30 Normal [facility] Main OR Preoperative Recordo n 08-12-2021 Main OR Preoperative Record Holding Area Document Type FTURO Summary Primary Physician: Edwin FU MD Finalized Date/Time: 08/12/21 08:23:28 Pt. Name: IDA KEALA Chaparro/Sex: 1970 Female Med Rec #: [id number] Physician: Edwin FU MD Financial #: [id number] Pt. Type: O Room/Bed: / Admit/Disch: 08/12/21 [...] Reaves RN, Lou Ann 08/12/21 08:23 Normal [facility] Operative Reporton Operative Report Patient: ROBERT GARCIA Age: 51 years Sex: Female : 1970 [...] urine. The Urethra was dilated to: 30 Bahamian w/ sounds. Devices Implanted: None. Removal: Cystoscope is removed, The patient tolerated it well. Postoperative Information Discharge: Patient is discharged home with antibiotic coverage, Follow up arranged, F/U with aMia Chakrabotry . Reassessment of urinary sx will take place. If the pelvic discomfort continues, perhaps some physical therapy (? trigger points) could be considered. Do not feel her pelvic symptoms are due to bladder etiology. , On exam, tender on vaginal exam, universally, including downward pressure towards rectum, and bilaterally, as well as anteriorly. . Normal [facility] Comment on above: Result Comment: Elec tronically Signed By: Edwin FU MD\.br\Date and Time Signed: 08/12/21 08:34 EDT Outpatient Surgery Discharge Instructionon 08-12-2021 Outpatient Surgery Discharge Instruction [place] [id number] Patient Discharge Instructions PERSON INFORMATION Name: KAELA GARCIA Date of : 1970 Current Date: 08/12/2021 08:31:38 PHYSICIANS Admitting Physician: Edwin FU MD Comment: Discharge Diagnosis: KAELA GARCIA has been given the following list of follow-up instructions, prescriptions, and patient education materials: IF UNABLE TO CONTACT YOUR PHYSICIAN AND YOU FEEL IT IS AN EMERGENCY, GO TO THE NEAREST EMERGENCY ROOM OR CALL 911 Follow up: With: Address: When: AUGUSTA CHAKRABORTY [facility] [place], [place] [id number] [facility] (1) Comments: Please make an appointment with [...] you have a fever over 100 degrees I, KAELA GARCIA, have received the attached patient education materials/instructions [...] to serve you. Thank you for choosing [facility] Normal [facility] Formson 07-26-2021 Forms [id number] 0CD:127 Normal [facility] Physician Referralon 022 Physician Referral [id number]:127 Normal [facility] Urology Office/Clinic Noteon 07-22-2021 Urology Office/Clinic Note Chief Complaint referred for incontinence, cystitis. [facility] Staff Kaela is here today by [facility] for incontinence and chronic cystitis. PVR [...] perform UD. Follow-up With When Contact Information PALMER ROSSI, AUGUSTA Roe, URL [address] [address] Business (1) Additional Instructions: Patient Education Overactive Bladder, Adult I, Concepcion Loza , personally scribed for Augusta Chakraborty on 07/21/2021 15:25:40. . Documentation recorded by the jermain Loza accurately reflects the services(s) I performed [...] Protein Urine Dipstick: Negative (07/21/21 14:54:00) Specific Page Urine Dipstick: 1.025 (07/21/21 14:54:00) Urine Appearance Urine Dipstick: Clear (06/24 (more content not included)... Normal [facility] Comment on above: Result Comment: Elec tronically Signed By: AUGUSTA CHAKRABORTY PA-C\.br\Date and Time Signed: 07/22/21 09:17 EDT Ambulatory Visit Summaryon 0 07-21-2021 Ambulatory Visit Summary KAELA GARCIA :1970 Visit Date:07/21/2021 Ambulatory Visit Instructions Your Diagnosis Urinary urgency Stress incontinence Feeling of incomplete bladder emptying Cystitis Tests Performed Urnls Dip Stick Auto w/o Microscopy POC 15167 Your Care Team Attending Physician - AUGUSTA [...] AUGUSTA CHAKRABORTY PA-C, URL When: Where: [address] [facility] [place] [address] [facility] (1) Medications What How Much When Instructions Unchanged glimepiride (glimepiride 4 mg Tab) Every day Contact prescribing physician if questions or concerns Test Results Urnls Dip Stick Auto w/o Microscopy POC 97561 (07/21/2021) Blood Urine Dipstick - Negative Glucose Urine Dipstick - Negative Ketones Urine Dipstick - Negative Leukocytes Urine Dipstick - Negative Nitrite Urine Dipstick - Negative Protein Urine Dipstick - Negative Specific Page Urine Dipstick - 1.025 Urine Appearance Urine [...] (more content not included)... Normal [facility] Patient Educationon 07-22-19 Patient Education Obstetrics and [...] (more content not included)... Normal [facility] Vital Signs Date Time Vital Sign Value Performing Clinician Facility 06-10-2023 12:48-0500 Body height 162.56 cm [facility] 06-10-2023 12:48-0500 Body mass index (BMI) [Ratio] 32.8 kg/m2 [facility] 06-10-2023 12:48-0500 Body weight 86.63 kg [facility] 06-10-2023 12:48-0500 Diastolic blood pressure 78 mm[Hg] [facility] 06-10-2023 12:48-0500 Heart rate 68 /min [facility] 06-10-2023 12:48-0500 Respiratory rate 18 /min [facility] 06-10-2023 12:48-0500 SaO2% (BldA) [Mass fraction] 98 % [facility] 06-10-2023 12:48-0500 Systolic blood pressure 126 mm[Hg] [facility] 06-06-2023 15:08-0500 Body mass index (BMI) [Ratio] 32.46 kg/m2 Terry Gillis DO Work Phone: [facility] 06-06-2023 15:08-0500 Body weight 85.78 kg Terry Carlin DO Work Phone: [facility] 06-06-2023 15:08-0500 Diastolic blood pressure 68 mm[Hg] Terry Carlin DO Work Phone: [facility] 06-06-2023 15:08-0500 Systolic blood pressure 110 mm[Hg] Terry Carlin DO Work Phone: [facility] 07-21-2021 14:51-0400 Blood Pressure Location AUGUSTA CHAKRABORTY [facility] 07-21-2021 14:51-0400 Diastolic blood pressure 71 mm[Hg] AUGUSTA CHAKRABORTY [facility] 07-21-2021 14:51-0400 Heart rate 77 /min AUGUSTA CHAKRABORTY [facility] 07-21-2021 14:51-0400 Respiratory rate 16 /min AUGUSTA CHAKRABORTY [facility] 07-21-2021 14:51-0400 Systolic blood pressure 123 mm[Hg] AUGUSTA CHAKRABORTY [facility] Encounters Encounter Date Encounter Type Care Provider Facility Start: 06-10-2023 End: 06-10-2023 ambulatory [facility] Work Phone: Start: 06-10-2023 End: 06-10-2023 Patient encounter procedure [facility] Work Phone: Start: 06-06-2023 End: 06-06-2023 ambulatory TERRY CARLIN Not Available Start: 06-06-2023 End: 06-06-2023 Patient encounter procedure Terry Carlin DO Work Phone: [facility] Work Phone: Start: 06-06-2023 End: 06-06-2023 Periodic preventive med est patient 40-64yrs Terry Gillis DO Work Phone: [facility] Comment on above: Well woman exam with routine gynecological exam; Breast cancer screening by mammogram; Postmenopausal state Start: 06-01-2022 End: 06-01-[address] TERRY GILLIS Facility: Start: 08-12-2021 End: 08-12-2021 Patient encounter procedure [facility] Start: 07-21-2021 End: 07-21-2021 Patient encounter procedure AUGUSTA CHAKRABORTY [facility] Procedures Date Procedure Procedure Detail Performing Clinician Start: 06-01-2022 Mammography Terry canela DO Work Phone: Breast surgery (qual ifier value) AUGUSTA PALMER Hemorrhoids (disorder) WOODY PRICE PALMER History of reduction of breast Hx of bilateral breast reduction surgery Hysterectomy AUGUSTADEE CHAKRABORTY Tonsillectomy AUGUSTADEE CHAKRABORTY Plan of Treatment Date Care Activity Detail Author Start: 06-06-2023 End: 06-06-2024 DXA Skeletal system Views for bone density DEXA bone density Imaging Routine Postmenopausal state Expected: 06/06/2023 (Approximate), Expires: 06/06/2024 [facility] Comment on above: Expected: 06/06/2023 (Approximate), Expires: 06/06/2024 Start: 06-06-2023 End: 08-04-2024 MG Breast - bilateral Screening Bilateral screening mammogram Imaging Routine Breast cancer screening by mammogram Expected: 06/06/2023, Expires: 08/04/2024 [facility] Work Phone: Comment on above: Expected: 06/06/2023 , Expires: 08/04/2024 Start: 06-01-2023 Screening for malignant neoplasm of breast Mammogram [facility] Start: 12-23-2022 Influenza vaccination Influenza Vacc ine (#1) [facility] Start: 01-25-2000 Screening for malignant neoplasm of cervix [facility] Start: 1991 Screening for malignant neoplasm of cervix Pap Smear [facility] Start: 1970 Screening for malignant neoplasm of colon [facility] THIN PREP TIS PAP AN D HR HPV DNA THIN PREP TIS PAP AND HR HPV DNA Pathology and Cytology Routine Well woman exam with routine gynecological exam Ordered: 06/06/2023 [facility] Comment on above: Ordered: 06/06/2023 Immunizations Immunization Date Immunization Notes Care Provider Fa edwige 05-19-2021 SARS-CoV-2 (COVID-19 ) Ad26 vaccine, recombinant AUGUSTAKAY CHAKRABORTY [facility] 04-28-2021 SARS-CoV-2 (COVID-19 ) Ad26 vaccine, recombinant AUGUSTAZulahoo [facility] 02-10-2021 influenza virus vaccine, unspecified formulation Terry Carlininez POLANCO Work Phone: [facility] Payers Date Payer Category Payer Unknown BCBS BCBS xxxxxx [id number] 2021-Present [phone] [address] [place] [address] [id number] 1970 Unknown [id number] 1970 Unknown [id number] 1959 Unknown [id number] Social History Date Type Detail Facility Start: 07-21-2021 Tobacco smoking status Heavy t obacco smoker (finding) [facility] Start: 05-11-2023 [facility]igned At Female [facility] Start: 05-11-2023 [facility] History of tobacco use Cigarette Smoker [facility] Start: 05-11-2023 Cigarettes smoked current (pack per day) - Reported 0.5 [facility] Start: 06-06-2023 Alcohol intake Current drinke r of alcohol (finding) [facility] Start: 05-11-2023 Alcohol Comment occasional [facility] Start: 1970 Sex Assigned At Female [facility] Start: 06-05-2023 Gender identity Identifies as female gender (finding) [facility] Start: 06-05-2023 Sexual orientation Asexual [facility] Start: 06-10-2023 Tobacco smoking stat [facility] Smoker (finding) [facility] History of Present illness Narrative 06-06-2023 Yamilet Cuevas LPN - 06/06/2023 3:00 PM EST Note Date & Type Note Facility 06-06-2023 History of Presen t illness Narrative Reason for Appointment: Patient ID: Kaela Garcia is a 53 y.o. female who presents for Well Women Visit Patient presents today for Annual Exam appointment. Current Medications: has a current medication list which includes the following prescription(s): mounjaro. Medical History: Active Ambulatory Problems Diagnosis Date Noted No Active Ambulatory Problems Resolved Ambulatory Problems Diagnosis Date Noted No Resolved Ambulatory Problems Past Medical History: Diagnosis Date Breast cancer screening by mammogram Dyspareunia in female Encounter for gynecological examination (general) (routine) without abnormal findings H/O gynecological procedure Obesity (BMI 30-39.9) Post menopausal syndrome Family History Problem Relation Name Age of Onset Heart disease Father Social History Tobacco Use Smoking status: Every Day Packs/day: .5 Types: Cigarettes Smokeless tobacco: Not on file Substance Use Topics Alcohol use: Yes Comment: occasional Drug use: Never Past Surgical History: Procedure Laterality Date BELT ABDOMINOPLASTY tummy tuck BREAST SURGERY breast reduction HEMORRHOID SURGERY 2017 hemorrhoidectomy/sphinecterotomy HYSTERECTOMY 08/2016 OTHER SURGICAL HISTORY 2013 uterine ablation TONSILLECTOMY Allergies Allergen Reactions Penicillin G Other Reaction(s): Unknown Review of Systems: Review of Systems Constitutional: Negative. HENT: Negative. Eyes: Negative. Respiratory: Negative. Cardiovascular: Negative. Gastrointestinal: Negative. Genitourinary: Negative. Musculoskeletal: Negative. Skin: Negative. Neurological: Negative. All other systems reviewed and are negative. Hematological: Negative. Endocrine: Negative. Allergic/Immunologic: Negative. Objective Physical Exam Constitutional: Appearance: Normal appearance. She is well-developed. Genitourinary: Vulva normal. Vaginal cuff intact. Cervix is not absent. Uterus is not absent. Cardiovascular: Rate and Rhythm: Normal rate and regular rhythm. Abdominal: General: Bowel sounds are normal. There is no distension. Palpations: Abdomen is soft. Tenderness: There is no abdominal tenderness. There is no guarding or rebound. Musculoskeletal: General: No swelling. Normal range of motion. Right lower leg: No edema. Left lower leg: No edema. Neurological: Mental Status: She is alert and oriented to person, place, and time. Skin: General: Skin is warm and dry. Psychiatric: Mood and Affect: Mood normal. Behavior: Behavior normal. Vitals and nursing note reviewed. Exam conducted with a car ferrier present. Vitals: Estimated body mass index is 32.46 kg/m as calculated from the following: Height as of 23: 5' 4 . Weight as of this encounter: 189 lb 1.9 oz. BP: 110/68 No LMP recorded. Assessment/Plan Encounter Diagnoses Name Primary? Well woman exam with routine gynecological exam Breast cancer screening by mammogram Postmenopausal state Patient presents today for an annual exam. Patient states she is doing well and has no complaints. Pap was obtained without difficulty and patient given mammogram and dexa scan order to have scheduled/obtained. Follow Up: Patient is to return in one year for annual unless needed otherwise. Documented by Yamilet Cuevas LPN on behalf of: Terry Gillis DO documented in this encounter [facility] History and physical note 08-12-2021 Note Date & Type Note Facility 08-12-2021 Note [id number] #[id number] [facility] Clinical Note 08-12-2021 Note Date & Type [...] a fever over 100 degrees [facility] Hospital Discharge instructions 08-12-2021 Note Date & [...] Up Care 07/27/2021 12:01:15 With:AUGUSTA CHAKRABORTY Address: [address] [place] [address] Business (1) When: Unknown Comments:Please make an appointment with Maia Chakraborty for about 4 to 6 weeks from now. She can assess any improvement in the urinary symptoms. If the pelvic discomfort symptoms continue, perhaps we should consider some physical therapy in that area.Please finish your antibiotics and have a great day. [facility] Discharge instructions 07-21-2021 Note Date & Type [...] fried and sweet foods. General instructions Take [id number]-[id number] and prescription medicines only as told by [...] 02/04/2010 Document Revised: 08/01/2019 Document Reviewed: 04/26/2018 [employer] Patient Education 2020 [employer]. Follow Up Care 06/25/2021 10:48:50 With:AUGUSTA CHAKRABORTY PA-C, URL Address: [address] [place], [place] [address] [place] [address] Business (1) When: Unknown [facility] Evaluation + Plan note Note Date & Type Note Facility Evaluation + Plan note No data available for this section [facility] Evaluation + Plan note Note Date & Type Note Facility Evaluation + Plan note Future Appointments Appointment Date:09/15/2021 03:15:00 PM Scheduled Provider:AUGUSTA CHAKRABORTY PA-C Location:[facility] Appointment Type:URO Office Visit [facility] Evaluation note Note Date & Type Note Facility Evaluation note Diagnosis Well woman exam with routine gynecological exam Routine gynecological examination Breast cancer screening by mammogram Postmenopausal state Asymptomatic postmenopausal status (age-related) (natural) documented in this encounter [facility] Evaluation note Note Date & Type Note Facility Evaluation note Diagnosis Onset Date Acute cough acute Pleurisy acute [facility] Work Phone: Summary Purpose Family History No Family History Records FoundNo Family History Records FoundNo Family History Records Found Advance Directives Advance Directive Response Recorded Date/ Time Advance Directives No May 12:03pm Chief Complaint and Reason for Visit Chief Complaint Cough Reason for Visit Acute cough Pleurisy Additional Source Comments INFORMATION SOURCE (unrecogn ized section and content) DATE CREATED AUTHOR 09/13/2021 [facility] DATE CREATED AUTHOR AUTHOR'S ORGANIZ ATION 06/08/2022 [facility] DATE CREATED AUTHOR AUTHOR'S ORGANIZ ATION 06/08/2023 [facility] Specialists EPIC Reason for Visit (unrecogniz ed section and content) Reason Comments Well Women Visit Care Teams (unrecognized sec tion and content) Environmental Services Attendant Relationship Specialty Start Date End Date [facility] [address] [place] [phone] PCP - General 06/05/23 Team Status: Active Member Role Status Dates Giorgio Rodriguez MD Primary Care Provider Active Team Status: Inactive Member Role Status Dates TERRI Fleming Attending Provider Active S tart: June 10, 2023 End: June 10, 2023 Giorgio Rodriguez MD Primary Care Provider Active Start: June 10, 2023 End: June 10, 2023 Goals (unrecognized section and content) Goals may be documented in a n alternate section FOR RECORDS PERTAINING TO PATIENTS WHO ARE [...] BE BASED ON THE PRIMARY CLINICAL RECORDS. [facility]. provides no warranty or guarantee of the accuracy or completeness of information in this document.
== END 2023-09-04 16:31 | disposition home or self-care (01) ==
LOC: LAB 16:30
PROVIDERS: PCP Family Medicine; Visit Provider Family Medicine
DX: L91.8 Other hypertrophic disorders of the skin (principal)
CPT/HCPCS: 88304

== ENCOUNTER 2024-03-16 07:29 | Outpatient (OUT) | payer BC, SELFPAY ==
--- OUTSIDE RECORDS SUMMARY | 2024-03-16 07:33 | XMS_ITS | CCD ---
Author Organization [facility] Care Team Providers Care Mold Sheet Cleaner Name Role Phone Giorgio Rodriguez Primary Care Physician [phone] DR TERRY GILLIS Attending Unavailable DR TERRY GILLIS Consulting Unavailable DR TERRY GILLIS Admitting Unavailable DR GIORGIO RODRIGUEZ Primary Care Unavailable TERRY GILLIS Attending Unavailable Ed Gonzalez Primary Care Provider [phone] Giorgio Rodriguez Attending Unavailable Giorgio Rodriguez Admitting Unavailable Allergies Allergy Classification Reported Allergen(s) Allergy Type Date of Onset Reaction(s) Facility (2 sources) Penicillin; Translations: [penicillin] Drug Allergy Unknown (qualifier value) [facility] (1 source) Penicillins Drug allergy (disorder) 4 [facility] Repository (2 sources) Penicillin G Drug Allergy 4 [facility] (1 source) Penicillins Drug allergy (disorder) 4 [facility] Repository Medications Current Medications Medication Drug Class(es) Dates Sig (Normalized) Sig (Original) ciprofloxacin 500 mg oral tablet (1 source) Quinolone Antimicrobial Start: 2 Cipro 500 mg Tab See Instructions, Take 1 tab day prior to procedure and 1 tab day of procdure - afterwards, # 2 tab(s), Refills(s) 0, Pharmacy: [facility]/pharmacy #[id number], 162, cm, 07/21/21 15:04:00 EDT, [...] Results Test Name Value Interpretation Reference Range Facility [facility] 09-04-2023 L Specimen: [id number] Received: 09/06/23 Status: NOAM Barragan Num: [id number] Spec Type: Surgical Subm Dr: Giorgio Rodriguez MD Tissues: A Skin Tag or debridement (SKIN TAG LT UPPER POST SHOUL) Procedures: HE, Gross/Micro L3 Age/ Patient Sex Location Account Attending Physician Kaela Garcia 53/F LABELL [id number] Giorgio Rodriguez MD SPEC NUM: [id number] RECD: 09/06/23 STATUS: NOAM MORIN NUM: [id number] GENET: 09/04/[address]: Giorgio Rodriguez MD ENTERED: 09/06/23 [facility] DR: Rolo Franco SPEC TYPE: Surgical DEPT: RICHAR CASTELLANOS ORDERED: HE, Gross/Micro L3 ORDERED: HE, Gross/Micro L3 Pathological Diagnosis Skin lesion, left upper shoulder, biopsy: Fibroepithelial polyp. Gross Description Received in formalin, labeled with the patient's name, date of and left upper shoulder is a 0.4 x 0.3 x 0.1 cm rubbery and polypoid mcdermott skin shave biopsy. The specimen is inked blue along its resection margin, left intact and entirely submitted in A1. Clinical history: Skin tag CPT Codes 10504 ---- ---- Specimen: [id number] Received: 09/06/23 Status: NOAM Morin Num: [id number] Spec Type: Surgical Subm Dr: Giorgio Rodriguez MD Tissues: A Skin Tag or debridement (SKIN TAG LT UPPER POST SHOUL) Procedures: HE, Gross/Micro L3 ---- Patient: Kaela Garcia [id number] (Continued) ---- Signed (signature on file) Neto Camejo MD 09/07/23 1409 Normal [facility] PAP ACOG PANEL 2: 30 to 65on 06-08-2022 . . Normal [facility] Comment on above: Result Comment: Perf ormed at: WB Performed By: #### [id number] #### [facility] [address] [place] [address] Dr. Jef Haro Age Gdln ACOG Testing 30-65 Normal [facility] Comment on above: Performed By: #### 4 [id number] #### [facility] [address] [place] [address] Dr. Jef Haro DIAGNOSIS: Comment Normal [facility] Comment on above: Result Comment: NEGA TIVE FOR INTRAEPITHELIAL LESION OR MALIGNANCY. Performed at: WB Performed By: #### 4 [id number] #### [facility] [address] [place] [address] Dr. Jef Haro HPV Aptima Negative Normal Negative [facility] Comment on above: Result Comment: This nucleic acid amplification test detects fourteen high-risk HPV types (16,18,31,33,35,39,45,51,52,56,58,59,66,68) without differentiation. Performed at: =G Performed By: #### 4 [id number] #### [facility] [address] [place] [address] Dr. Jef Haro HPV Genotype Reflex Comment Normal [facility] Comment on above: Result Comment: Crit eria not met, HPV Genotype not performed. Performed at: WB Performed By: #### 4 [id number] #### [facility] [address] [place] [address] Dr. Jef Haro Methodology: Comment Normal [facility] Comment on above: Result Comment: This liquid based ThinPrep(R) pap test was screened with the use of an image guided system. Performed at: WB Performed By: #### 4 [id number] #### [facility] [address] [place] [address] Dr. Jef Haro Note: Comment Normal [facility] Comment on above: Result Comment: The Pap smear is a screening test designed to aid in the detection of premalignant and malignant conditions of the uterine cervix. It is not a diagnostic procedure and should not be used as the sole means of detecting cervical cancer. Both false-positive and false-negative reports do occur. . Performed at: WB Performed By: #### 4 [id number] #### [facility] [address] [place] [address] Dr. Jef Haro Performed by: Comment Normal [facility] Comment on above: Result Comment: Yolie Lal, Java J2Ee Application Developer (ASCP) Performed at: WB Performed By: #### 4 [id number] #### [facility] [address] [place] [address] Dr. Jef Haro Specimen adequacy: Comment Normal [facility] Comment on above: Result Comment: Sati sfactory for evaluation. Endocervical and/or squamous metaplastic cells (endocervical component) are present. Performed at: WB Performed By: #### 4 [id number] #### [facility] [address] [place] [address] Dr. Jef Haro Coding Summary.on 08-13-2021 Coding Summary. CD:[id number] Gh 0bWw+PGhlYWQ+RY8OZILhT 71klOVwhD4EK0iIFQ9KLNF KOGKISQ1GVW6gbBS6AMgxD 2VybiAv VrnkwWUyBQ51ITb4IAU9sC hgQJsyjU9ssCTvC9x3BtBi TI93qX42AScsEXWnWvV5Fr ZpbjsgbWFy H3jvHwAglXBjOvw+PHRhYm xlIHdpZHRoPScxMDAlJyBz qXdpCQ2oZe4wGDKhKOOriQ xhcHNlOiBj f4qdRPHfEVteYW7qdZwiQ2 XfkTU7UCRnc3x7Mz50nPN+ IYIhBXU9zCrbGUvpm341Nn Wgm9ybTKB2 jFQxJJqnOKV5B10mf9N9KO VwTHNmLHW5dRO8kO7wxCkp mjapO0OjqUDnQjR7FWR6zV FvgR2xmWpu ijupnC4yPru+D12YXW5XEW VFAC3BTuk2Q0EtMejnpTP+ WA78KLYtXU92hTVpgTUzf8 mjjCa9YlIj JQMjBSU4mIkaOYudd0NnSU WrJ78pxFNca7D4CWMshJkl lSNkXhHrdOH6zE2tPKonag xvf8kyiifm Zvkwn0tphr23xH67Y33eCT deEPNaUUM9DRZwQQSaxWsp lv8inO0eVi0+DOtxq3hye4 hqpGy7RlLg EAHafqYlcSqqHFT4m3VfBr 61U0RkpTxxb6HnHii9ut38 sHAtq2Q4oEE5IAmpYTFhqK 1cIOtdCyW6 XEInNkTlqI48vWKqOTytAj 1bzGyjnLwpWJ7cWDEdaphg MAVdbY3oECDqtHIbvRnmSC 4wNTBpbjtm w143LxZmJAN1BSYapYIvO0 QaiQ8fGdHzHRVsWMPbJ9Bu uZZpKKafX801BOabNxA8ZL HxasZmX5Fd JCSypIlqKhE0i2I4Lf3Or5 WujjcdKGH4OLvwWDL6WdZr TqWxKvK4U8PbKnr1SIXbdE xdZJ3nY9Yx MJBhgstlepyarHU7UUTdII GhhX32lQFzCXhqSa5dw8H5 m409PNAgXPDrhQ38Vm2dwT ogMTBwdCBU uC4zwgrtr3erexxoFiRfJB GwSSd3ZDj7RZLgoJzmOyMt QJF9JzM7LJN7bLOgdB4iuJ qwhqhgyZ3g Oyc+L52kpK8oOVO0XQO0yc pzJTSxswUzVL64LR30C2Zj PjwvdGFibGU+PGRpdiBzdH itWE7jZlLw f7aog2ZzUYkrF8GvDBTnHC vzAua5ZFPhDXE9dLB8kT3z WVXvLFdam1C4tGT6X9Bzgy Jifd0tv6vn HWCeGWtaC40klDKco6Q1FR SihJF7TUGwiFknQkMpnI04 Oyc+NRMnpJzwx7KqNokar4 kfw1epgMl3 IpLeRZQhfpLofCplMGG3s4 VsDk59M78iRDwqNNHlZQQl RBUnRODzmGmxdw2xjS0kNn 8+PGNvbCB3 qKQ1vE2zIQVlKrE8MJtyN2 78IfYvyMCuAfegq8daq7jq hEy2GmAnIHGvphItdRrsRZ A4s2BhRc94 F42mUQzqOAOiXBIkPYVgKV PyqWehja6laA8yCc8+PC9j q9ztxi79sP20wBM+PHRkIH Y0wAlwBHfk GANchL0qTOmaBpK5TRNgBo XdoK60gYTvRGfeNw2ddSsn mWziWI1sJZXfputen336Nj Gld9nxJRLr qKAbJTrkLFX4T16xf8Q6DA NqSVJrUBX6wJR3xK0zjUil bjogbGVmdDsgdmVydGljYW ejIBcsJ075 IHRvcDsnPlBhdGllbnQgTm OqHQo8Y8AyAxy9ILItpDgh LZ5geHQtPTrtZp1maBxurD vcTE0bRGLe zvtrz326EkTdk0udFPHjoZ EnXLggLQU5J22dx1Q5RMHf CSImVRM8jOD4oN8bfVeszv ogbGVmdDsg nbAwqLjaHBivTWtfE827OV RvcDsnPkJpcnRoIERhdGU6 RE72IF02sDXah3P4eWV0M7 BhZGRpbmct vslajXV1VVJiDYPuhO96Ma 2yxQteVi6aLETjOWC0AFIl gLOeW3FtiA5cHgSmFRRyIB WlF2NjcOFs BFnoF606FCotLaZ7WXBame FeZ6RlKVReaWntCgD9v6K6 Ao6QF1I0TX40AA49vMQho1 U1iZI3Q3Lv KJClyljugdnbfRI1SMFxAH LyoJ07Bu1zcTpaFb6fNQUs DYF0HIKqwSHhM9UhdQ0xXt AjMDAwMDAw U0WwkKQmYVayT925SDkjKk G0ZLJnljJjV3NtWGGojBjy MoT8b3S3Ob5QIXk1NE23LE 24mHYcz8G1 hYY1J6PzMCZcgmvkwgmhsL Q2ZOTpUWRygT66Km3yvXhn Gt3cBDNkCGU4BYSwfSGhG0 FomA9lWyJy DHFhCBZsF1IzzPAcMLpxO8 37BBhsCxB0YMTjomQyA9Qe OAIsqNanFnT0g5Y1Ns7XSO JxFF52CIL5 nFE8MB72BL54A5ReOfebxH FibGU+PHRhYmxlIHdpZHRo NNpuEBMkYhBlaOgoVL0dQl 9yZGVyLWNv eAdusMSzSnHxy8fqMZQdVE shYZ0czNzwH7SjeWH6OZRa e9i6Sh82X26hW5KwbLF+PG OksMY3jMO0 fN8oDtQfDeY9STkqJ157Dz TxcRUoRddkx0vdr5tzrFm6 ShN1TWHqsnIyvCkpMZO0g2 JzEv44Y02b IHdpZHRoPSIxNSUiIHZhbG tzik4utA5oEb5+PGNvbCB3 uBI3rG1uJcZvIkO0OBznL7 49InRvcCIv Hhlva1lty1cunMm1FdTdLM DerwCdeHzyKPB4c4InEo90 Q2XblNvzx7HnRvq6ip36fC Ifh7O7qKQ1 W2GxQDNbmifxyOHdfNrxWG 0pSVQczabyNWQgzZ9zGBEi R3n7XpTaHaZ0XSifT2Pcwc C4ZPUjvOVi NImiYYL7U58ra7E9UIUpEZ OsMSL9qME9cC0pgXmyiqio bGVmdDsgdmVydGljYWwtYW yhF875ASPp vVsxYSMaoQ6qSEZimEMbjP rcOS8vRSYzzwcsErAYWKtq IENIRVJJRTwvdGQ+PHRkIH S9aNtuYKhe ZJTrlA0vVKPbK5z0NmUwTm N6MIiwC8MtJDKdzzfdGo09 gX3nAtUyYiC5EDkdS8Ojyc V2BIMqiZNb LHnvBSV3S76oz0T5LQUcJQ SxOLD3cYL8fX7bpXczwqlh bGVmdDsgdmVydGljYWwtYW jpK451AHFo bUudWdPfKtAvQjJ4GvF6Y4 NsSjg1VSSoiBuxBP0wtXQo SKdzJm3otVdmuSwcBR6vXR BpbjtwYWRk rM5qIHXcxNAetYhhNW1xOS Svfhapc920ChKqJSW0FNUa nTPpR1GwwW9uXiYuYGQkGB IaI1NhoFRh NBiyB732JFdjQeX0CTBzxl SzP5KqICDdlFznAfG0r1F6 Xd97GLZZILHiawgxaAS+PH EzIWY8zEsw TCpcFYKhbN3mYPRiD1a6Jb OtAhJ9TOvoW3HdSNWuxcjr Cs52gL1nCcVfDbS4VThvK9 GkacK3RJDt pQDvEEjwMQF6L74qm1N1VV NkAHAcJKU5qAT8aO6fuFbr bjogbGVmdDsgdmVydGljYW kbHOueS621 IHRvcDsnPkZlbWFsZTwvdG Q+GSQiCJH3pBolXMhvNJYt bY3sFPYtE2e8WxMlHyB2AM dsE7ZnEKFg twtkJg62uB1rHkFfWmO8IS ifR6KujjP5EQBzrTXwHLio VLP7I47un0H5XPEyLKLyKF U4bHK4qU9y bGlnbjogbGVmdDsgdmVydG lwAVqsOKfqG621OFJmbXtk Fe84sAGwoCtyhjA1F9WiPt wvdHI+PC90 QDWcDR12sHRkuTIka7hamF i2UlUeZUPmRKR1uXprBEes m3JdHYBlR51vaCGks8V2IC NvbGxhcHNl RcCbiNU2qG1dZBgauqajh6 xkigffSzuvc7bjsa49uU44 G81lECzhPMDqXDFsXTOsIC AggGbzyp5h tO6vJn5+KZCbjQH3bLP8jP 3rTeHkRgH8RSluS364PyNe tYSyLmwzd6kfi8hycJs9Lj IwJSIgdmFs wYfoCYO4u8UmDf63P61pBX dpZHRoPSIyMCUiIHZhbGln ah1ezQ3vHv1+DU7rr2unqq 82dH22cFF+ KOHvZDL0fZmhSDcgVJXrrI 8xOUtzFrY7RZTtZqSjpI43 kEQpWCgoFf7qoWlpbDypII 4wNTBpbjtm m230SiJdo4aoBVWeiWPiDF laZRL0A89nl8B6OSUdVPUh EAF4qEC5fX3xgZuqzkqnpR VmdDsgdmVy rXgxIIqlVRbdU905PNLqjN qaFyRpgTKrS7aejmKKBJ6s OjwvdGQ+WCNbHRV0zZdsYH bzQFKzaG5w DZCcL3c7RdDuBxE4CVoiD1 IrfdV6MYPdvPNlRIIeaKIM hR9ulhttd1ckueizRfEcVC TlNNd9ZSc0 RHExsTqxRgLhLIS2QnU9KY E2wLBpxV0jlVbzafpnkI6d Oyc+RklOOjwvdGQ+PHRkIH B6fMdhIGeb MPEuvB8rSENcM8b0UfMcPl U4JWsdW8ZuljL8DILrkPSs PPXnwROMbI0qbagur6lwnm ogIzAwMDAw PJh4WKg8DAQxiAruFjGmKD F5OfC1ESS7rZKniK7wzMvx zfjfvD1vHfl+TVJOOjwvdG Q+PHRkIHN0 zHmcUHerQZPbpW9iXQKoH6 c9GkYgZzC8KBrgR4TvybV5 KAWleKWzDPNfzBAQnW0evm gjv2eqsyhr HdDgVAKhVRr9MMo8QNFygZ aqLbLiJZJ6BfT8FOG7bPHw tR0gmMzzlkdgqK5wGqa+UG F0FVW3KL63 YH32W3PvMgtmlMNyjMX+PH RhYmxlIHdpZHRoPScxMDAl XwJqkRirLU1eGj8wMDNnDZ NvbGxhcHNl OiBj (more content not included)... Normal [facility] Consent for Procedure/Surger yon 08-12-2021 Consent for Procedure/Surgery [id number] 0CD:127 Normal [facility] Consent for Treatmenton 07-24 Consent for Treatment [id number] 0CD:127 [facility] Inpatient Patient Summaryon 08-12-2021 Inpatient Patient Summary [place] [id number] Clinical Summary Person Information Name: KAELA GARCIA Age: 51 Years : 1970 Sex: Female PCP: Giorgio Rodriguez MD Marital Status: Race: White Ethnicity: Non- or Language: Lao Visit Id: Visit Reason: URINARY INCONTINENCE UGERNECY AND INCOMPLETE EMPTYING Speciality: Acuity: Enc Type: Outpatient Med Service: Surgery Arrival: 08/12/2021 07:41:05 Discharge: Dispo Type: Address: [address] [place] [address] [place] [id number] Provider Notes: Diagnosis: Problems Active Cystitis Feeling [...] MD Follow up: With: Address: When: AUGUSTA PALMER [address], [place] [id number] Business (1) Comments: Please make an appointment [...] Cystoscopy with Urethral Dilation Discharge Instructions (Custom) [facility] IntraOperative Documentson 0 08-12-2021 IntraOperative Documents [id number] 0CD:127 [facility] Main OR Intraoperative Recor don 08-12-2021 Main OR Intraoperative Record IntraOp Document Type FTURO Summary Primary Physician: Edwin FU MD Finalized Date/Time: 08/12/21 08:30:44 Pt. Name: KAELA GARCIA/Sex: 1970 Female Med Rec #: [id number] Physician: Edwin FU MD Financial #: [id number] Pt. Type: O Room/Bed: / Admit/Disch: 08/12/21 07:41:05 - Institution: Case Times FTURO Entry 1 Patient Times In Room 08/12/21 08:16:00 Out Room 08/12/21 08:30:00 Procedure Times Start 08/12/21 08:20:00 Stop 08/12/21 08:27:00 Anesthesia Times Last Modified By: RHYS Reaves RN, Lou Ann 08/12/21 08:29:44 Case Attendance FTURO Entry 1 Entry 2 Entry 3 Case Attendee Edwin FU MD, RN, TRINITYORMamta EVALUATION ENGINEER, Haydee Roe Role Performed Surgeon - Primary Regulatory Assistant - Primary Scrub - Primary Time In 08/12/21 08:16:00 08/12/21 08:16:00 08/12/21 08:16:00 Time Out 08/12/21 08:30:00 08/12/21 08:30:00 08/12/21 08:30:00 Procedure CYSTOSCOPY LOCAL WITH CYSTOSCOPY LOCAL WITH CYSTOSCOPY LOCAL WITH URETHRAL DILATION(.) URETHRAL DILATION(.) URETHRAL DILATION(.) Comments Last Modified By: TRINITY Reaves RNORMamta RN, CNOR, Lou Ann Blank RN, CNOR, [...] Reaves RN, Lou Ann 08/12/21 08:30 Normal [facility] Main OR Preoperative Recordo n 08-12-2021 Main OR Preoperative Record Holding Area Document Type FTURO Summary Primary Physician: Edwin FU MD Finalized Date/Time: 08/12/21 08:23:28 Pt. Name: KAELA GARCIA/Sex: 1970 Female Med Rec #: [id number] Physician: Edwin FU MD Financial #: [id number] Pt. Type: O Room/Bed: / Admit/Disch: 08/12/21 [...] Reaves RN, Lou Ann 08/12/21 08:23 Normal [facility] Operative Reporton 2 Operative Report Patient: ROBERT GARCIA Age: 51 [...] urine. The Urethra was dilated to: 30 Belgian w/ sounds. Devices Implanted: None. Removal: Cystoscope [...] bilaterally, as well as anteriorly. . Normal [facility] Comment on above: Result Comment: Elec tronically Signed By: Edwin FU MD\.br\Date and Time Signed: 08/12/21 08:34 EDT Outpatient Surgery Discharge Instructionon 08-12-2021 Outpatient Surgery Discharge Instruction [place] [id number] Patient Discharge Instructions PERSON INFORMATION Name: KAELA [...] Follow up: With: Address: When: AUGUSTA CHAKRABORTY [address] [place] [address] [address] [place] [phone] [facility] (1) Comments: Please make an appointment with [...] to serve you. Thank you for choosing [facility] Normal [facility] Formson 07-26-2021 Forms [id number] 0CD:127 Normal [facility] Physician Referralon Physician Referral [id number]:127 Normal [facility] Urology Office/Clinic Noteon 07-22-2021 Urology Office/Clinic Note Chief Complaint referred for incontinence, cystitis. HPI Staff Kaela is here today by [facility] for incontinence and chronic cystitis. PVR [...] When Contact Information PALMER ROSSI, AUGUSTA Roe, URDebbie [address] [place] [address] Business (1) Additional Instructions: Patient [...] Protein Urine Dipstick: Negative (07/21/21 14:54:00) Specific [place] Urine Dipstick: 1.025 (07/21/21 14:54:00) Urine Appearance Urine Dipstick: Clear (06/24 (more content not included)... Normal [facility] Comment on above: Result Comment: Elec tronically Signed By: AUGUSTA CHAKRABORTY PA-C\Date and Time Signed: 07/22/21 09:17 EDT Ambulatory Visit Summaryon 0 07-21-2021 Ambulatory Visit Summary KAELA GARCIA :1970 Visit Date:07/21/2021 Ambulatory Visit Instructions Your Diagnosis Urinary urgency Stress incontinence Feeling of incomplete bladder emptying Cystitis Tests Performed Urnls Dip Stick Auto w/o Microscopy POC 23006 Your Care Team Attending Physician - AUGUSTA [...] AUGUSTA CHAKRABORTY PA-C, URL When: Where: [address] [place] [address] [facility] (1) Medications What How Much When Instructions Unchanged glimepiride (glimepiride 4 mg Tab) Every day Contact prescribing physician if questions or concerns Test Results Urnls Dip Stick Auto w/o Microscopy POC 07612 (07/21/2021) Blood Urine Dipstick - Negative Glucose Urine Dipstick - Negative Ketones Urine Dipstick - Negative Leukocytes Urine Dipstick - Negative Nitrite Urine Dipstick - Negative Protein Urine Dipstick - Negative Specific [place] Urine Dipstick - 1.025 Urine Appearance Urine [...] which u (more content not included)... Normal [facility] Patient Educationon 07-22-19 Patient Education Obstetrics and [...] Take ove (more content not included)... Normal [facility] Vital Signs Date Time Vital Sign Value Performing Clinician Facility 06-10-2023 12:48-0500 Body height 162.56 cm [facility] 06-10-2023 12:48-0500 Body mass index (BMI) [Ratio] 32.8 kg/m2 [facility] 06-10-2023 12:48-0500 Body weight 86.63 kg [facility] 06-10-2023 12:48-0500 Diastolic blood pressure 78 mm[Hg] [facility] 06-10-2023 12:48-0500 Heart rate 68 /min [facility] 06-10-2023 12:48-0500 Respiratory rate 18 /min [facility] 06-10-2023 12:48-0500 SaO2% (BldA) [Mass fraction] 98 % [facility] 06-10-2023 12:48-0500 Systolic blood pressure 126 mm[Hg] [facility] 06-06-2023 15:08-0500 Body mass index (BMI) [Ratio] 32.46 kg/m2 [employer] Work Phone: [facility] 06-06-2023 15:08-0500 Body weight 85.78 kg [facility] Jianjian Work Phone: [facility] 06-06-2023 15:08-0500 Diastolic blood pressure 68 mm[Hg] Terry Carlin [employer] Work Phone: [facility] 06-06-2023 15:08-0500 Systolic blood pressure 110 mm[Hg] Terry Carlin DO Work Phone: [facility] 07-21-2021 14:51-0400 Blood Pressure Location AUGUSTA CHAKRABORTY [facility] 07-21-2021 14:51-0400 Diastolic blood pressure 71 mm[Hg] AUGUSTA CHAKRABORTY [facility] 07-21-2021 14:51-0400 Heart rate 77 /min AUGUSTA CHAKRABORTY [facility] 07-21-2021 14:51-0400 Respiratory rate 16 /min AUGUSTA CHAKRABORTY [facility] 07-21-2021 14:51-0400 Systolic blood pressure 123 mm[Hg] AUGUSTA CHAKRABORTY [facility] En[facility]ters Encounter Date Encounter Type Care Provider Facility Start: 09-04-2023 End: 09-04-2023 ambulatory Giorgio Rodriguez Facility:[facility] Start: 06-10-2023 End: 06-10-2023 ambulatory [facility] Work Phone: Start: 06-10-2023 End: 06-10-2023 Patient encounter procedure [facility] Work Phone: Start: 06-06-2023 End: 06-06-2023 ambulatory TERRY GILLIS Not Available Start: 06-06-2023 End: 06-06-2023 Patient encounter procedure Terry Holdero DO Work Phone: [facility] Work Phone: Start: 06-06-2023 End: 06-06-2023 Periodic preventive med est patient 40-64yrs Terry Holdero DO Work Phone: [facility] Comment on above: Well woman exam with routine gynecological exam; Breast cancer screening by mammogram; Postmenopausal state Start: 06-01-2022 End: 06-01-[address] TERRY GILLIS Facility: Start: 08-12-2021 End: 08-12-2021 Patient encounter procedure Edwin FU [facility] Start: 07-21-2021 End: 07-21-2021 Patient encounter procedure AUGUSTA CHAKRABORTY [facility] Procedures Date Procedure Procedure Detail Performing Clinician Start: 06-01-2022 Mammography Terry Fazi o DO Work Phone: Breast surgery (qual ifier value) AUGUSTA CHAKRABORTY Hemorrhoids (disorder) WOODY CHAKRABORTY History of reduction of breast Hx of bilateral breast reduction surgery Hysterectomy AUGUSTA CHAKRABORTY Tonsillectomy AUGUSTA CHAKRABORTY Plan of Treatment Date Care Activity Detail Author Start: 06-06-2023 End: 06-06-2024 DXA Skeletal system Views for bone density DEXA bone density Imaging Routine Postmenopausal state Expected: 06/06/2023 (Approximate), Expires: 06/06/2024 [facility] Comment on above: Expected: 06/06/2023 (Approximate), Expires: 06/06/2024 Start: 06-06-2023 End: 08-04-2024 MG Breast - bilateral Screening Bilateral screening mammogram Imaging Routine Breast cancer screening by mammogram Expected: 06/06/2023, Expires: 08/04/2024 [facility] Work Phone: Comment on above: Expected: 06/06/2023 , Expires: 08/04/2024 Start: 06-01-2023 Screening for malignant neoplasm of breast Mammogram [facility] Start: 12-23-2022 Influenza vaccination Influenza Vacc ine (#1) [facility] Start: 01-25-2000 Screening for malignant neoplasm of cervix [facility] Start: 1991 Screening for malignant neoplasm of cervix Pap Smear [facility] Start: 1970 Screening for malignant neoplasm of colon [facility] THIN PREP TIS PAP AN D HR HPV DNA THIN PREP TIS PAP AND HR HPV DNA Pathology and Cytology Routine Well woman exam with routine gynecological exam Ordered: 06/06/2023 [facility] Comment on above: Ordered: 06/06/2023 Immunizations Immunization Date Immunization Notes Care Provider Abhishek gibbons 05-19-2021 SARS-CoV-2 (COVID-19 ) Ad26 vaccine, recombinant AUGUSTA CHAKRABORTY [facility] 04-28-2021 SARS-CoV-2 (COVID-19 ) Ad26 vaccine, recombinant AUGUSTA PALMER [facility] 02-10-2021 influenza virus vaccine, unspecified formulation Terry Gillis DO Work Phone: [facility] Payers Date Payer Category Payer Self-pay 2021 Unknown BCBS BCBS [id number] 2021-Present [phone] [address] [place] [address] [id number] 1970 Unknown [id number] 1970 Unknown [id number] 1959 Unknown [id number] Social History Date Type Detail Facility Start: 07-21-2021 Tobacco smoking status Heavy t obacco smoker (finding) [facility] Start: 05-11-2023 Sex Assigned At Female [facility] Start: 05-11-2023 Tobacco smoking stat us MAIS Smokes tobacco daily [facility] History of tobacco use Cigarette Smoker [facility] Start: 05-11-2023 Cigarettes smoked current (pack per day) - Reported 0.5 [facility] Start: 06-06-2023 Alcohol intake Current drinke r of alcohol (finding) [facility] Start: 05-11-2023 Alcohol Comment occasional [facility] Start: 1970 Sex Assigned At Female [facility] Start: 06-05-2023 Gender identity Identifies as female gender (finding) [facility] Start: 06-05-2023 Sexual orientation Asexual [facility] Start: 06-10-2023 Tobacco smoking stat [facility] Smoker (finding) [facility] History of Present illness Narrative 06-06-2023 Yamilet Cuevas, SOCIAL SECURITY ASSESSOR - 06/06/2023 3:00 PM EST Note Date [...] 2017 hemorrhoidectomy/sphinecterotomy HYSTERECTOMY 08/2016 OTHER SURGICAL HISTORY 2014 uterine ablation TONSILLECTOMY Allergies Allergen Reactions Penicillin [...] nursing note reviewed. Exam conducted with a type mapper present. Vitals: Estimated body mass index is 32.46 kg/m as calculated from the following: Height as of 06/01/22: 5' 4 . Weight as of this [...] Date & Type Note Facility 08-12-2021 Note [id number] [facility] Clinical Note 08-12-2021 Note Date & [...] you have a fever over 100 degrees [place] [facility] Discharge instructions 08-12-2021 Note Date & Type [...] Up Care 07/27/2021 12:01:15 With:AUGUSTA CHAKRABORTY Address: [address] [place] [address] [place] [address] Business (1) When: Unknown Comments:Please make an appointment with Maia Chakraborty for about 4 to 6 weeks from now. She can assess any improvement in the urinary symptoms. If the pelvic discomfort symptoms continue, perhaps we should consider some physical therapy in that area.Please finish your antibiotics and have a great day. [facility] Discharge instructions 07-21-2021 Note Date & [...] fried and sweet foods. General instructions Take svmr-mvp-gsiettw and prescription medicines only as told by [...] 02/04/2010 Document Revised: 08/01/2019 Document Reviewed: 04/26/2018 [employer] Patient Education 2020 [employer] Follow Up Care 06/25/2021 10:48:50 With:AUGUSTA CHAKRABORTY PA-C, URL Address: [address] [place] [address] Business (1) When: Unknown [facility] Evaluation + Plan note Note Date & Type Note Facility Evaluation + Plan note No data available for this section [facility] Evaluation + Plan note Note Date & Type Note Facility Evaluation + Plan note Future Appointments Appointment Date:09/15/2021 03:15:00 PM Scheduled Provider:AUGUSTA CHAKRABORTY PA-C Location:[facility] Appointment Type:URO Office Visit [facility] Evaluation note Note Date & Type Note Facility Evaluation note Diagnosis Well woman exam with routine gynecological exam Routine gynecological examination Breast cancer screening by mammogram Postmenopausal state Asymptomatic postmenopausal status (age-related) (natural) documented in this encounter [facility] Evaluation note Note Date & Type Note Facility Evaluation note Diagnosis Onset Date Acute cough acute Pleurisy acute [facility] Work Phone: Summary Purpose Family History No Family History Records FoundNo Family History Records FoundNo Family History Records FoundNo Family History Records Found Advance Directives No Advanced Directives Records Found Advance Directive Response Recorded Date/ Time Advance Directives No May 12:03pm Chief Complaint and Reason for Visit Chief Complaint Cough Reason for Visit Acute cough Pleurisy Additional Source Comments INFORMATION SOURCE (unrecogn ized section and content) DATE CREATED AUTHOR 09/13/2021 [facility] DATE CREATED AUTHOR AUTHOR'S ORGANIZ ATION 06/08/2022 [facility] DATE CREATED AUTHOR AUTHOR'S ORGANIZ ATION 06/08/2023 [facility] EPIC DATE CREATED AUTHOR AUTHOR'S ORGANIZ ATION 09/07/2023 [facility] Reason for Visit (unrecogniz ed section and content) Reason Comments Well Women Visit Care Teams (unrecognized sec tion and content) 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 [facility] [employer] [facility]. provides no warranty or guarantee of the accuracy or completeness of information in this document.
[2024-03-16 07:45] LABS: Basophils Absolute Auto 0.1 10^3/uL (0.0-0.1); Eosinophils Absolute Auto 0.4 10^3/uL (0.0-0.7); Hematocrit 45.3 % (36.0-48.0); Hemoglobin 14.7 g/dL (12.0-16.0); Immature Granulocytes Abs Auto 0.01 10^3/uL (0.00-0.03); Immature Granulocytes Pct Auto 0.1 % (0.0-0.5); Lymphocytes Absolute Auto 4.9 10^3/uL (1.2-3.8); Lymphocytes Percent Auto 47.8 % (20.5-60.0); Mean Corpuscular HGB Conc 32.5 g/dL (29.9-35.2); Mean Corpuscular Hemoglobin 29.5 pg (26.7-34.0); Mean Corpuscular Volume 90.8 fL (81.0-99.0); Mean Platelet Volume 10.1 fL (9.5-13.5); Monocytes Absolute Auto 0.5 10^3/uL (0.3-0.8); Monocytes Percent Auto 4.5 % (1.7-12.0); Neutrophils Absolute Auto 4.4 10^3/uL (1.4-6.5); Neutrophils Percent Auto 42.6 % (43.0-75.0); Platelet Count 280 10^3/uL (150-450); Red Blood Count 4.99 10^6/uL (4.20-5.40); Red Cell Distribution Width 13.3 % (11.0-15.0); White Blood Count 10.3 10^3/uL (4.0-11.0)
[2024-03-16 08:01] LABS: Estimated Average Glucose 105 mg/dL; Glycohemoglobin A1C 5.3 % (4.5-6.2)
[2024-03-16 09:06] LABS: Alanine Aminotransferase 23 U/L (14-59); Albumin Globulin Ratio 1.1; Albumin Level 3.5 g/dL (3.4-5.0); Alkaline Phosphatase 73 U/L (46-116); Aspartate Amino Transferase 13 U/L (15-37); BUN Creatinine Ratio 22.1; Bilirubin Total 0.4 mg/dL (0.2-1.0); Calcium 8.7 mg/dL (8.5-10.1); Carbon Dioxide 26.2 mmol/L (21.0-32.0); Chloride 107 mmol/L (98-107); Cholesterol 259 mg/dL (<=200); Estimated GFR (African America >60 (>=60 mL/min/1.73m^2); Estimated GFR (Non-African Ame >60 (>=60 mL/min/1.73m^2); Free T3 2.26 pg/mL (2.18-3.98); Globulin 3.3 g/dL; Glucose 98 mg/dL (74-106); HDL Cholesterol 64 mg/dL (40-60); Potassium 4.2 mmol/L (3.5-5.1); Sodium 145 mmol/L (136-145); Thyroid Stimulating Hormone 3.108 uIU/mL (0.358-3.740); Total Protein 6.8 g/dL (6.4-8.2); Triglycerides 100 mg/dL (<=150)
== END 2024-03-16 07:30 | disposition home or self-care (01) ==
LOC: LAB 07:30
PROVIDERS: PCP Family Medicine; Visit Provider Family Medicine
DX: Z00.00 Encounter for general adult medical examination without abnormal findings (principal); E11.9 Type 2 diabetes mellitus without complications
CPT/HCPCS: 36415; 80053; 80061; 83036; 84436; 84443; 84481; 85025

== ENCOUNTER 2024-03-18 12:25 | Outpatient (REF) | payer BC, SELFPAY ==
[2024-03-18 15:32] LABS: Internal Control Within Normal Limits; Occult Blood Positive
== END 2024-03-18 12:26 | disposition home or self-care (01) ==
LOC: LAB 12:25
PROVIDERS: PCP Family Medicine; Visit Provider Family Medicine
DX: Z00.00 Encounter for general adult medical examination without abnormal findings (principal); E11.9 Type 2 diabetes mellitus without complications
CPT/HCPCS: G0328

== ENCOUNTER 2024-03-25 12:13 | Outpatient (OUT) | payer BC, SELFPAY ==
--- NOTE | 2024-03-25 12:17 | CT_ITS ---
[address] [address] Patient Name: TAWANA PRIETO MRN: [id number] date: 1970 Sex: F Assigned Patient Location: RAD Current Patient Location: RAD Accession/Order Number: [id number] Exam Date: 03/25/2024 12:25 Report Date: 03/25/2024 13:47 At the request of: GIORGIO OROPEZA Procedure: CT lung screening low-dose EXAMINATION: CT lung screening low-dose HISTORY: z00.0, well adult COMPARISON: No relevant comparison available. TECHNIQUE: Axial, Coronal, and Sagittal images were created without the administration of IV contrast material. Dose reduction techniques were achieved by using automated exposure control and/or adjustment of mA and/or kV according to patient size and/or use of iterative reconstruction technique. FINDINGS: LUNGS: No visible pulmonary disease. PLEURA: No mass, effusion, or pneumothorax. VASCULATURE: No abnormality. LISA: No mass or pathologic adenopathy. MEDIASTINUM: No mass or pathologic adenopathy. CARDIAC: No enlargement, pericardial thickening, or significant calcification. CORONARY ARTERIES: Coronary calcifications are moderate. AORTA: No aortic aneurysm. Mild calcific atherosclerosis CHEST WALL: No mass or axillary adenopathy BONES: No bone lesion or fracture. LIMITED ABDOMEN: No suspicious findings. Limited images of the upper abdomen. OTHER: Negative. CT/CT lung screening low-dose IMPRESSION: LUNG SCREENING: Lung-RADS Category 1 Negative. No nodules and definitely benign nodules. Continue annual screening with LDCT in 12 months. Electronically authenticated by: PRIYANKA ENRIQUE Date: 03/25/2024 13:47
--- OUTSIDE RECORDS SUMMARY | 2024-03-25 12:30 | XMS_ITS | CCD ---
Author Organization [facility] Inform ion Partnership [facility] Care Team Providers Care Marketing Planner Name Role Phone Giorgio Rodriguez Primary Care Physician DR TERRY GILLIS Attending Unavailable DR TERRY GILLIS Consulting Unavailable DR TERRY GILLIS Admitting Unavailable DR GIORGIO RODRIGUEZ Primary Care Unavailable TERRY GILLIS Attending Unavailable [facility] Primary Care Provider Giorgio Rodriguez Attending Unavailable Giorgio Rodriguez Admitting Unavailable Samuel MERCADO Attending Unavailable Allergies Allergy Classification Reported Allergen(s) Allergy Type Date of Onset Reaction(s) Facility (3 sources) Penicillin; Translations: [penicillin] Drug Allergy Unknown (qualifier value) [facility] (1 source) Penicillins Drug allergy (disorder) 4 [facility] Repository (2 sources) Penicillin G Drug Allergy 4 [facility] (1 source) Penicillins Drug allergy (disorder) 4 [facility] Repository Medications Current Medications Medication Drug Class(es) Dates Sig (Normalized) Sig (Original) ciprofloxacin 500 mg oral tablet (1 source) Quinolone Antimicrobial Start: 2 Cipro 500 mg Tab See Instructions, Take 1 tab day prior to procedure and 1 tab day of procdure - afterwards, # 2 tab(s), Refills(s) 0, Pharmacy: [facility]/pharmacy #[id number], 162, cm, 07/21/21 15:04:00 EDT, [...] Name Value Interpretation Reference Range Facil ity Gerardo 09-04-2023 L Specimen: [id number] Received: 09/06/23 Status: SOUT Req Num: [id number] Spec Type: Surgical Subm Dr: Giorgio Rodriguez MD Tissues: A Skin Tag or debridement (SKIN TAG LT UPPER POST SHOUL) Procedures: HE, Gross/Micro L3 Age/ Patient Sex Location Account Attending Physician Kaela Garcia 53/F LABELL [id number] Giorgio Rodriguez MD SPEC NUM: [id number] RECD: 09/06/23 STATUS: NOAM REQ NUM: [id number] GENET: 09/04/[address]: Giorgio Rodriguez MD ENTERED: 09/06/[address] [facility] DR: Rolo Franco SPEC [...] A1. Clinical history: Skin tag CPT Codes 59172 Specimen: [id number] Received: 09/06/23 Status: NOAM Morin Num: [id number] Spec Type: Surgical Subm Dr: Giorgio Rodriguez MD Tissues: A Skin Tag or debridement (SKIN TAG LT UPPER POST SHOUL) Procedures: HE, Gross/Micro L3 Patient: Kaela Garcai [id number] (Continued) Signed (signature on file) Neto Camejo MD 09/07/23 1409 Normal [facility] PAP ACOG PANEL 2: 30 to 65on 06-08-2022 . . Normal [facility] Comment on above: Result Comment: Performed at: WB Performed By: #### [id number] #### [facility] [address] [place] [address] Dr. Jef Haro Age Gdln ACOG Testing 30-65 Normal [facility] Comment on above: Performed By: #### [id number] #### [facility] [address] [address] [address] Jef Haro DIAGNOSIS: Comment Normal [facility] Comment on above: Result Comment: NEGATIVE FOR INTRAEPITHE LIAL LESION OR MALIGNANCY. Performed at: WB Performed By: #### [id number] #### [facility] [address] [place] [address] Dr. Jef Haro HPV Aptima Negative Normal Negative [facility] Comment on above: Result Comment: This nucleic acid amplif ication test detects fourteen high-risk HPV types (16,18,31,33,35,39,45,51,52,56,58,59,66,68) without differentiation. Performed at: =G Performed By: #### [id number] #### [facility] [address] [place] [address] Dr. Jef Haro HPV Genotype Reflex Comment Normal [facility] Comment on above: Result Comment: Criteria not met, HPV Ge notype not performed. Performed at: WB Performed By: #### [id number] #### [facility] [address] [place] [address] Dr. Jef Haro Methodology: Comment Normal [facility] Comment on above: Result Comment: This liquid based ThinPr ep(R) pap test was screened with the use of an image guided system. Performed at: WB Performed By: #### [id number] #### [facility] [address] [place] [address] Dr. Jef Haro Note: Comment Normal [facility] Comment on above: Result Comment: The Pap smear is a scree kayla test designed to aid in the detection of premalignant and malignant conditions of the uterine cervix. It is not a diagnostic procedure and should not be used as the sole means of detecting cervical cancer. Both false-positive and false-negative reports do occur. . Performed at: WB Performed By: #### [id number] #### [facility] [address] [place] [address] Dr. Jef Haro Performed by: Comment Normal [facility] Comment on above: Result Comment: Live Lal Cytotechn ologist (ASCP) Performed at: WB Performed By: #### [id number] #### [facility] [address] [address] [address] Jef Haro Specimen adequacy: Comment Normal [facility] Comment on above: Result Comment: Satisfactory for evaluat ion. Endocervical and/or squamous metaplastic cells (endocervical component) are present. Performed at: WB Performed By: #### [id number] #### [facility] [address] [address] [address] Jef Haro Vital Signs Date Time Vital Sign Value Performing Clinician Facility 06-10-2023 12:48-0500 Body height 162.56 cm [facility] 06-10-2023 12:48-0500 Body mass index (BMI) [Ratio] 32.8 kg/m2 [facility] 06-10-2023 12:48-0500 Body weight 86.63 kg [facility] 06-10-2023 12:48-0500 Diastolic blood pressure 78 mm[Hg] [facility] 06-10-2023 12:48-0500 Heart rate 68 /min [facility] 06-10-2023 12:48-0500 Respiratory rate 18 /min [facility] 06-10-2023 12:48-0500 SaO2% (BldA) [Mass fraction] 98 % [facility] 06-10-2023 12:48-0500 Systolic blood pressure 126 mm[Hg] [facility] 06-06-2023 15:08-0500 Body mass index (BMI) [Ratio] 32.46 kg/m2 Terry Carlin DO Work Phone: [facility] 06-06-2023 15:08-0500 Body weight 85.78 kg Terry Carlin DO Work Phone: [facility] 06-06-2023 15:08-0500 Diastolic blood pressure 68 mm[Hg] Terry Carlin DO Work Phone: [facility] 06-06-2023 15:08-0500 Systolic blood pressure 110 mm[Hg] Terry Carlin DO Work Phone: [facility] 07-21-2021 14:51-0400 Blood Pressure Location FRANCESCO CHAKRABORTY [facility] 07-21-2021 14:51-0400 Diastolic blood pressure 71 mm[Hg] FRANCESCO CHAKRABORTY [facility] 07-21-2021 14:51-0400 Heart rate 77 /min FRANCESCO CHAKRABORTY [facility] 07-21-2021 14:51-0400 Respiratory rate 16 /min FRANCESCO CHAKRABORTY [facility] 07-21-2021 14:51-0400 Systolic blood pressure 123 mm[Hg] FRANCESCO CHAKRABORTY [facility] Encounters Encounter Date Encounter Type Care Provider Facility Start: 04-05-2024 ambulatory Samuel MERCADO Facility : [facility] Start: 03-19-2024 ambulatory Samuel MERCADO Facility:[facility] Start: 09-04-2023 End: 09-04-2023 ambulatory Giorgio Rodriguez Facility:[facility] Start: 06-10-2023 End: 06-10-2023 ambulatory [facility] Work Phone: Start: 06-10-2023 End: 06-10-2023 Patient encounter procedure [facility] Work Phone: Start: 06-06-2023 End: 06-06-2023 ambulatory TERRY CARLIN Not Available Start: 06-06-2023 End: 06-06-2023 Patient encounter procedure Terry Acrlin DO Work Phone: [facility] Work Phone: Start: 06-06-2023 End: 06-06-2023 Periodic preventive med est patient 40-64yrs Terry Gillis DO Work Phone: [facility] Comment on above: Well woman exam with routine gynecological exam; Breast cancer screening by mammogram; Postmenopausal state Start: 06-01-2022 End: 06-01-[address] TERRY GILLIS Facility: Start: 08-12-2021 End: 08-12-2021 Patient encounter procedure Edwin Downing NICKIE [facility] Start: 07-21-2021 End: 07-21-2021 Patient encounter procedure FRANCESCO CHAKRABORTY [facility] Procedures Date Procedure Procedure Detail Performing Clinician Start: 06-01-2022 Mammography Terry canela DO Work Phone: Breast surgery (qual ifier value) FRANCESCO CHAKRABORTY Hemorrhoids (disorder) [facility] History of reduction of breast Hx of bilateral breast reduction surgery Hysterectomy FRANCESCO CHAKRABORTY Tonsillectomy FRANCESCO CHAKRABORTY Plan of Treatment Date Care Activity Detail Author Start: 06-06-2023 End: 06-06-2024 DXA Skeletal system Views for bone density DEXA bone density Imaging Routine Postmenopausal state Expected: 06/06/2023 (Approximate), Expires: 06/06/2024 [facility] Comment on above: Expected: 06/06/2023 (Approximate), Expires: 06/06/2024 Start: 06-06-2023 End: 08-04-2024 MG Breast - bilateral Screening Bilateral screening mammogram Imaging Routine Breast cancer screening by mammogram Expected: 06/06/2023, Expires: 08/04/2024 [facility] Work Phone: Comment on above: Expected: 06/06/2023 , Expires: 08/04/2024 Start: 06-01-2023 Screening for malignant neoplasm of breast Mammogram [facility] Start: 12-23-2022 Influenza vaccination Influenza Vacc ine (#1) [facility] Start: 01-25-2000 Screening for malignant neoplasm of cervix [facility] Start: 1991 Screening for malignant neoplasm of cervix Pap Smear [facility] Start: 1970 Screening for malignant neoplasm of colon [facility] THIN PREP TIS PAP AN D HR HPV DNA THIN PREP TIS PAP AND HR HPV DNA Pathology and Cytology Routine Well woman exam with routine gynecological exam Ordered: 06/06/2023 [facility] Comment on above: Ordered: 06/06/2023 Immunizations Immunization Date Immunization Notes Care Provider Fa cilijodie 05-19-2021 SARS-CoV-2 (COVID-19 ) Ad26 vaccine, recombinant FRANCESCO CHAKRABORTY [facility] 04-28-2021 SARS-CoV-2 (COVID-19 ) Ad26 vaccine, recombinant FRANCESCO CHAKRABORTY [facility] 02-10-2021 influenza virus vaccine, unspecified formulation Terrybeny Holderrola POLANCO Work Phone: [facility] Payers Date Payer Category Payer Self-pay 2021 Unknown BCBS BCBS [id number] [id number] 2021-Present [phone] [address] [place] [address] [id number] 1970 Unknown [id number] 1970 Unknown [id number] 1970 Unknown [id number] 1959 Unknown [id number] Social History Date Type Detail Facility Start: 07-21-2021 Tobacco smoking status Heavy t obacco smoker (finding) [facility] Start: 05-11-2023 Sex Assigned At Female [facility] Start: 05-11-2023 [facility] History [...] [facility] Start: 06-10-2023 Tobacco smoking stat [facility] Smoker (finding) [facility] History of Present illness Narrative 06-06-2023 Yamilet CuevasARNAV - 06/06/2023 3:00 PM EST Note Date [...] nursing note reviewed. Exam conducted with a zipper setter lockstitch present. Vitals: Estimated body mass index is [...] Terry Gillis DO documented in this encounter [facility] Discharge instructions 08-12-2021 Note Date & Type [...] 100 degrees Follow Up Care 07/27/2021 12:01:15 With:FRANCESCO CHAKRABORTY Address: [address] [place] [address] [facility] [place] [address] Business (1) When: Unknown Comments:Please make an appointment with Maia Chakraborty for about 4 to 6 weeks from now. She can assess any improvement in the urinary symptoms. If the pelvic discomfort symptoms continue, perhaps we should consider some physical therapy in that area.Please finish your antibiotics and have a great day. [facility] Discharge instructions 07-21-2021 Note Date & [...] fried and sweet foods. General instructions Take ejet-wvo-hbodwfk and prescription medicines only as told by [...] 02/04/2010 Document Revised: 08/01/2019 Document Reviewed: 04/26/2018 [employer] Patient Education 2020 [employer]. Follow Up Care 06/25/2021 10:48:50 With:FRANCESCO CHAKRABORTY PA-C, URL Address: [address] [place] [address] Business (1) When: Unknown [facility] Evaluation + Plan note Note Date & Type Note Facility Evaluation + Plan note No data available for this section [facility] Evaluation + Plan note Note Date & Type Note Facility Evaluation + Plan note Future Appointments Appointment Date:09/15/2021 03:15:00 PM Scheduled Provider:FRANCESCO CHAKRABORTY PA-C Location:[facility] Appointment Type:URO Office Visit [facility] Evaluation note Note Date & Type Note Facility Evaluation note Diagnosis Well woman exam with routine gynecological exam Routine gynecological examination Breast cancer screening by mammogram Postmenopausal state Asymptomatic postmenopausal status (age-related) (natural) documented in this encounter [facility] Evaluation note Note Date & Type Note Facility Evaluation note Diagnosis Onset Date Acute cough acute Pleurisy [facility] Work Phone: Summary Purpose Family History [...] ized section and content) DATE CREATED AUTHOR 06/08/2022 [facility] pital DATE CREATED AUTHOR AUTHOR'S ORGANIZ ATION 06/08/2023 [facility] EPIC DATE CREATED AUTHOR AUTHOR'S ORGANIZ ATION 09/07/2023 [facility] DATE CREATED AUTHOR AUTHOR'S ORGANIZ ATION 03/22/2024 [facility] Reason for Visit (unrecogniz ed section and content) Reason Comments Well Women Visit Care Teams (unrecognized sec tion and content) Marketing Planner Relationship Specialty Start Date End Date [facility] [address] [place] [address] PCP - General 06/05/23 Team Status: Active Member Role Status Dates Giorgio Rodriguez MD Primary Care Provider Active Team Status: Inactive Member Role Status Dates CHICO FlemingC Attending Provider Active S tart: June 10, [...] BE BASED ON THE PRIMARY CLINICAL RECORDS. [facility] [employer] [facility]. provides no warranty or guarantee of the accuracy or completeness of information in this document.
== END 2024-03-25 12:14 | disposition home or self-care (01) ==
LOC: RAD 12:13
PROVIDERS: PCP Family Medicine; Visit Provider Family Medicine
DX: Z00.00 Encounter for general adult medical examination without abnormal findings (principal)
CPT/HCPCS: 71271

== ENCOUNTER 2024-04-12 14:34 | Outpatient (OUT) | payer BC, SELFPAY ==
--- OUTSIDE RECORDS SUMMARY | 2024-04-12 14:38 | XMS_ITS | CCD ---
Author Organization [facility] Care Team Providers Care Silverware Buffer Name Role Phone Giorgio Rodriguez Primary Care Physician [phone] DR TERRY GILLIS Attending Unavailable DR TERRY GILLIS Consulting Unavailable DR TERRY GILLIS Admitting Unavailable DR GIORGIO RODRIGUEZ Primary Care Unavailable TERRY GILLIS [facility]ending [facility] Giorgio Rodriguez Attending Unavailable Giorgio Rodriguez Admitting Unavailable Samuel MERCADO Attending Unavailable Allergies Allergy Classification Reported Allergen(s) Allergy Type Date of Onset Reaction(s) Facility (4 sources) Penicillin; Translations: [penicillin] Drug Allergy Unknown (qualifier value) [facility] (1 source) Penicillins Drug allergy (disorder) 4 [facility] (2 sources) Penicillin G Drug Allergy [address] [facility] (1 source) Penicillins Drug allergy (disorder) 4 [facility] Repository Medications Current Medications Medication Drug Class(es) Dates Sig (Normalized) Sig (Original) 0.5 ML tirzepatide 5 MG/ML Auto-Injector [Mounjaro] (1 source) Start: 4 Mounjaro 2.5 mg/0.5 mL subcutaneous solution 2 mL, 0 Refill(s), INJECT 2.5MG SUBCUTANEOUSLY ONCE A WEEK, Refills(s) 0 Start Date: 03/22/24 Status: Ordered ciprofloxacin 500 mg oral tablet (1 source) Quinolone Antimicrobial Start: 2 Cipro 500 mg Tab See Instructions, Take 1 tab day prior to procedure and 1 tab day of procdure - afterwards, # 2 tab(s), Refills(s) 0, Pharmacy: [facility]/pharmacy #[id number], 162, cm, 07/21/21 15:04:00 EDT, [...] 12:00am Problems Problem Classification Problem Date Documented Da te Episodic/Chronic Anxiety disorders (1 source) Mixed anxiety and depressive disorder 03-22-2024 Chronic Diabetes mellitus without complication (2 sources) Type 2 diabetes mellitus; Translations: [Type 2 diabetes mellitus without complications] 06-10-2023 Chronic Disorders of lipid metabolism (3 sources) Hyperlipidemia; Translations: [Hyperlipidemia, unspecified] 06-10-2023 Chronic Genitourinary symptoms and ill-defined conditions (4 sources) Stress incontinence (female) (male); Translations: [Genuine stress incontinence] Onset: 07-21-2021 Chronic Genitourinary symptoms and ill-defined conditions (5 sources) Urgent desire to urinate; Translations: [Urgency of urination] Onset: 07-21-2021 Episodic Other bone disease and musculoskeletal deformities (1 source) Osteopenia 03-22-2024 Episodic Other gastrointestinal disorders (1 source) Abnormal feces; Translations: [Other fecal abnormalities] Onset: 04-05-2024 Episodic Other gastrointestinal disorders (1 source) Occult blood in stools 03-22-2024 Episodic Other lower respiratory disease (2 sources) [...] Translations: [Pleurisy] 06-10-2023 Episodic Residual codes; unclassified (1 source) Sleep apnea 03-22-2024 Chronic Residual codes; unclassified (2 sources) Postmenopausal state; Translations: [Asymptomatic menopausal state] 06-06-2023 Episodic Residual codes; unclassified (1 source) Tobacco user 03-31-2024 Episodic Unclassified (3 sources) Finding of sensation of bladder 07-21-2021 Urinary tract infections (4 sources) Cystitis; Translations: [Cystitis, unspecified without hematuria] Onset: 07-21-2021 Episodic Results Test Name Value Interpretation Reference Range Vi wheelery Ambulatory Visit Summaryon 1 06-06-2023 Ambulatory Visit Summary Ambulatory Visit Summary KAELA GARCIA :1970 Visit Date:04/05/2024 Ambulatory Visit Instructions Your Diagnosis Positive occult stool blood test Your Care Team Attending Physician - Samuel MERCADO MD Primary Care Physician - Giorgio Rodriguez MD This Is Your Medications List Contact prescribing physician if questions or concerns tirzepatide (Mounjaro 2.5 mg/0.5 mL subcutaneous solution) Procedures Performed Abdominoplasty, Breast reduction, Endometrial ablation, Hemorrhoidectomy, Tonsillectomy, VH - Vaginal hysterectomy. Discharge Vitals Heart Rate (Peripheral) 56 Respiratory Rate 16 Blood Pressure 104/69 Height 162.5 cm Height 64 in Weight 61.8 kg Weight 136.246 lb BMI 23.4 Medications What When Instructions Unchanged tirzepatide (Mounjaro 2.5 mg/ 0.5 mL subcutaneous solution) 2 mL, 0 Refill(s), INJECT 2.5MG SUBCUTANEOUSLY ONCE A WEEK Contact prescribing physician if questions or concerns Allergies penicillin (Unknown) Problems Ongoing - Any problem that you are currently receiving treatment for. Anxiety and depression Cystitis Diabetes Feeling of incomplete bladder emptying Hypercholesterolemia Hyperlipidemia Osteopenia Positive occult stool blood test Sleep apnea Stress incontinence Urinary urgency Patient Survey You may receive a survey via text or e-mail asking about your office visit. Please share your experience with us by completing your survey. We appreciate your feedback and thank you for choosing us for your care. Normal [facility] Gerardo 09-04-2023 L Specimen: [id number] Received: 09/06/23 Status: NOAM Morin Num: [id number] Spec Type: Surgical Subm Dr: Giorgio Rodriguez MD Tissues: A Skin Tag or debridement (SKIN TAG LT UPPER POST SHOUL) Procedures: HE, Gross/Micro L3 Age/ Patient Sex Location Account Attending Physician Kaela Garcai 53/F LABELL [id number] Giorgio Rodriguez MD SPEC NUM: [id number] RECD: 09/06/23 STATUS: [facility] NUM: [id number] GENET: 09/04/[address]: Giorgio Rodriguez MD ENTERED: 09/06/[address] [facility] [address]: Rolo Franco SPEC TYPE: Surgical DEPT: [...] A1. Clinical history: Skin tag CPT Codes 06989 Specimen: [id number] Received: 09/06/23 Status: NOAM Morin Num: [id number] Spec Type: Surgical Subm Dr: Giorgio Rodriguez MD Tissues: A Skin Tag or debridement (SKIN TAG LT UPPER POST SHOUL) Procedures: MICHELET, Gross/Nancy L3 Patient: Kaela Garcia [id number] (Continued) Signed (signature on file) Neto Camejo MD 09/07/23 1409 Normal [facility] PAP ACOG PANEL 2: 30 to 65on 06-08-2022 . . Normal [facility] Comment on above: Result Comment: Perf ormed at: WB Performed By: #### [id number] #### [facility] [address] [place] [address] Dr. Jef Haro Age Gdln ACOG Testing 30-65 Normal [facility] Comment on above: Performed By: #### [id number] #### [facility] [address] [address] [address] Jef Haro DIAGNOSIS: Comment Normal [facility] Comment on above: Result Comment: NEGA TIVE FOR INTRAEPITHELIAL LESION OR MALIGNANCY. Performed at: WB Performed By: #### [id number] #### [facility] [address] [place] [address] Dr. Jef Haro HPV Aptima Negative Normal Negative [facility] Comment on above: Result Comment: This nucleic acid amplification test detects fourteen high-risk HPV types (16,18,31,33,35,39,45,51,52,56,58,59,66,68) without differentiation. Performed at: =G Performed By: #### [id number] #### [facility] [address] [place] [address] Dr. Jef Haro HPV Genotype Reflex Comment Normal [facility] Comment on above: Result Comment: Crit eria not met, HPV Genotype not performed. Performed at: WB Performed By: #### [id number] #### [facility] [address] [place] [address] Dr. Jef Haro Methodology: Comment Normal [facility] Comment on above: Result Comment: This liquid based ThinPrep(R) pap test was screened with the use of an image guided system. Performed at: WB Performed By: #### [id number] #### [facility] [address] [place] [address] Dr. Jef Haro Note: Comment Normal [facility] Comment on above: Result Comment: The Pap smear is a screening test designed to aid in the detection of premalignant and malignant conditions of the uterine cervix. It is not a diagnostic procedure and should not be used as the sole means of detecting cervical cancer. Both false-positive and false-negative reports do occur. . Performed at: WB Performed By: #### [id number] #### [facility] [address] [place] [address] Dr. Jef Haro Performed by: Comment Normal [facility] Comment on above: Result Comment: Yolie Lal, Corporate Real Estate Specialist (ASCP) Performed at: WB Performed By: #### [id number] #### [facility] [address] [place], [place] [address] Dr. Jef Haro Specimen adequacy: Comment Normal [facility] Comment on above: Result Comment: Sati sfactory for evaluation. Endocervical and/or squamous metaplastic cells (endocervical component) are present. Performed at: WB Performed By: #### [id number] #### [facility] [address] [address] [address] Jef Haro Vital Signs Date Time Vital Sign Value Performing Clinician Facility 04-05-2024 13:17-0500 Blood Pressure Location [employer] [facility] 04-05-2024 13:17-0500 Diastolic blood pressure 69 mm[Hg] Samuel NILL [facility] 04-05-2024 13:17-0500 Heart rate 56 /min Samuel NILL [facility] 04-05-2024 13:17-0500 Respiratory rate 16 /min Samuel NILL [facility] 04-05-2024 13:17-0500 Systolic blood pressure 104 mm[Hg] Samuel NILL [facility] 06-10-2023 12:48-0500 Body height 162.56 cm [facility] 06-10-2023 12:48-0500 Body mass index (BMI) [Ratio] 32.8 kg/m2 [facility] 06-10-2023 12:48-0500 Body weight 86.63 kg [facility] 06-10-2023 12:48-0500 Diastolic blood pressure 78 mm[Hg] [facility] 06-10-2023 12:48-0500 Heart rate 68 /min [facility] 06-10-2023 12:48-0500 Respiratory rate 18 /min [facility] 06-10-2023 12:48-0500 SaO2% (BldA) [Mass fraction] 98 % [facility] 06-10-2023 12:48-0500 Systolic blood pressure 126 mm[Hg] [facility] 06-06-2023 15:08-0500 Body mass index (BMI) [Ratio] 32.46 kg/m2 Terry Carlin DO Work Phone: [facility] 06-06-2023 15:08-0500 Body weight 85.78 kg Terry Carlin DO Work Phone: [facility] 06-06-2023 15:08-0500 Diastolic blood pressure 68 mm[Hg] Terry Carlin DO Work Phone: [facility] 06-06-2023 15:08-0500 Systolic blood pressure 110 mm[Hg] Terry Carlin DO Work Phone: [facility] 07-21-2021 14:51-0400 Blood Pressure Location FRANCESCO OVIEDORY [facility] 07-21-2021 14:51-0400 Diastolic blood pressure 71 mm[Hg] FRANCESCO OVIEDORY [facility] 07-21-2021 14:51-0400 Heart rate 77 /min FRANCESCO PALMER [facility] 07-21-2021 14:51-0400 Respiratory rate 16 /min FRANCESCO PALMER [facility] 07-21-2021 14:51-0400 Systolic blood pressure 123 mm[Hg] FRANCESCO PALMER [facility] Encounters Encounter Date Encounter Type Care Provider Facility Start: 04-05-2024 End: 04-05-2024 ambulatory Samuel MERCADO Facility:[facility] Start: 04-05-2024 End: 04-05-2024 Patient encounter procedure Samuel MERCADO [facility] Start: 03-29-2024 ambulatory Samuel MERCADO Facility:[facility] Start: 03-19-2024 ambulatory Samuel MERCADO Facility:[facility] Start: 09-04-2023 End: 09-04-2023 ambulatory Giorgio Barry Vernonbeny Facility:[facility] Start: 06-10-2023 End: 06-10-2023 ambulatory [facility] Work Phone: Start: 06-10-2023 End: 06-10-2023 Patient encounter procedure [facility] Work Phone: Start: 06-06-2023 End: 06-06-2023 ambulatory TERRY GILLIS Not Available Start: 06-06-2023 End: 06-06-2023 Patient encounter procedure Terry Gillis DO Work Phone: [facility] Work Phone: Start: 06-06-2023 End: 06-06-2023 Periodic preventive med est patient 40-64yrs Terry Holdero DO Work Phone: [facility] Comment on above: Well woman exam with routine gynecological exam; Breast cancer screening by mammogram; Postmenopausal state Start: 06-01-2022 End: 06-01-[address] TERRY GILLIS Facility:[facility] Start: 08-12-2021 End: 08-12-2021 Patient encounter procedure Edwin FU [facility] Start: 07-21-2021 End: 07-21-2021 Patient encounter procedure FRANCESCO CHAKRABORTY [facility] Procedures Date Procedure Procedure Detail Performing Clinician Start: 06-01-2022 Mammography Terry Gillis DO Work Phone: Abdominoplasty Samuel MERCADO Breast surgery (qual ifier value) FRANCESCO CHAKRABORTY Endometrial ablation Samuel MERCADO Hemorrhoidectomy Samuel Lewis Hemorrhoids (disorder) WOODY CHAKRABORTY History of reduction of breast Hx of bilateral breast reduction surgery Hysterectomy FRANCESCO CHAKRABORTY Reduction mammoplasty Yvrose MERCADO Tonsillectomy FRANCESCO CHAKRABORTY Vaginal hysterectomy Samuel MERCADO Plan of Treatment Date Care Activity Detail Author Start: 06-06-2023 End: 06-06-2024 DXA Skeletal system Views for bone density DEXA bone density Imaging Routine Postmenopausal state Expected: 06/06/2023 (Approximate), Expires: 06/06/[address] [facility] Comment on above: Expected: 06/06/2023 (Approximate), Expires: 06/06/2024 Start: 06-06-2023 End: 08-04-2024 MG Breast - bilateral Screening Bilateral screening mammogram Imaging Routine Breast cancer screening by mammogram Expected: 06/06/2023, Expires: 08/04/[address] [facility] Work Phone: Comment on above: Expected: 06/06/2023 , Expires: 08/04/2024 Start: 06-01-2023 Screening for malignant neoplasm of breast Mammogram [facility] Start: 12-23-2022 Influenza vaccination Influenza Vacc ine (#1) [facility] Start: 01-25-2000 Screening for malignant neoplasm of cervix [facility] Start: 1991 Screening for malignant neoplasm of cervix Pap Smear [facility] Start: 1970 Screening for malignant neoplasm of colon [facility] THIN PREP TIS PAP AN D HR HPV DNA THIN PREP TIS PAP AND HR HPV DNA Pathology and Cytology Routine Well woman exam with routine gynecological exam Ordered: 06/06/2023 [facility] Comment on above: Ordered: 06/06/2023 Immunizations Immunization Date Immunization Notes Care Provider Abhishek gibbons 05-19-2021 SARS-CoV-2 (COVID-19 ) Ad26 vaccine, recombinant FRANCESCO CHAKRABORTY [facility] 04-28-2021 SARS-CoV-2 (COVID-19 ) Ad26 vaccine, recombinant FRANCESCO CHAKRABORTY [facility] 02-10-2021 influenza virus vaccine, unspecified formulation Terry Gillis DO Work Phone: [facility] Payers Date Payer Category Payer Self-pay 2021 Unknown BCBS BCBS [id number] 2021-Present [phone] [address] [place] [address] [id number] 1970 Unknown [id number] 1970 Unknown [id number] 1970 Unknown [id number] 1959 Unknown [id number] Social History Date Type Detail Facility Start: 07-21-2021 End: 04-05-2024 Tobacco smoking status Heavy tobacco smoker (finding) [facility] Incentive Start: 05-11-2023 Sex Assigned At Female [facility] Start: 05-11-2023 Tobacco smoking stat [facility] Smokes tobacco daily [facility] History of tobacco use Cigarette Smoker [facility] Start: 05-11-2023 Cigarettes smoked current (pack per day) - Reported 0.5 [facility] Start: 06-06-2023 Alcohol intake Current drinke r of alcohol (finding) [facility] Start: 05-11-2023 Alcohol Comment occasional [facility] Start: 1970 Sex Assigned At Female [facility] Start: 06-05-2023 Gender identity Identifies as female gender (finding) [facility] Start: 06-05-[address] [facility] Start: 06-10-2023 Tobacco smoking stat [facility] Smoker (finding) [facility] Functional Status Date Assessment Result Facility 04-05-2024 Functional Status N/A [facility] Clinical Note 04-05-2024 Note Date & Type Note Facility 04-05-2024 Note General Surgery Offi ce/Clinic Note Chief Complaint consultation for colonoscopy HPI Staff 54 year old female presents on consultation from Dr. Rodriguez for positive occult stool. Denies abdominal or rectal pain. No rectal bleeding or change in bowel habits. Denies nausea or vomiting. No unexplained weight loss. Never had colonoscopy in the past. No known family history of colon cancer. History of Present Illness 54 yo female with h/o hyperlipidemia, DMII, anxiety/depression, referred for positive fecal occult blood test; denies change in bms or blood in stools, no abd complaints; abd operations significant for hysterectomy, abdominoplasty; no previous colonoscopy; no asa or NSAID use; smokes daily; no fmhx of GI malignancy or IBD. Review of Systems PHQ Score Initial Depression Screen Score: 0 SCORE ROS - Provider Constitutional: no fever, no sweats, no weight loss. Eyes: yes glasses, no blurred vision, no visual loss. ENMT: no dentures, no hoarseness, no swallowing difficulties, no hearing loss, no ear infection(s), no nose bleeds. Cardiovascular: normal blood pressure, no chest pain, regular heartbeat, no heart murmur. Respiratory: no shortness of breath, no cough, no asthma, no wheezing. Gastrointestinal: no nausea, no vomiting, no diarrhea, no constipation, no blood in stool, no change in bowel habits, no abdominal pain, no hepatitis. Genitourinary: no kidney stones, no urine infection, no dysuria. Musculoskeletal: no pain, no weakness. Skin: no changing moles, no rash, no skin lumps. Neurologic: no seizures, no epilepsy, no headache. Psychiatric: no emotional or psychiatric problem. Heme/Lymph: no bleeding problems, no anemia, no blood clots, no transfusions. Allergy/Immunologic: no swollen lymph nodes/glands, no IV drug abuse. Other: Additional ROS info: Except as noted in the above Review of Systems and in the History of Present Illness, all other systems have been reviewed and are negative or noncontributory. Physical Exam Vitals & Measurements HR: 56(Peripheral) RR: 16 BP: 104/69 HT: 64 in HT: 162.5 cm WT: 61.8 kg WT: 136.246 lb BMI: 23.4 HEENT: normal conjunctiva, sclera clear, no scleral icterus, EOM intact, PERRLA, oral mucosa moist without lesions. Neck: trachea midline, no mass, symmetric, no thyromegaly or nodules, no adenopathy Respiratory: lungs CTA, respirations non labored. Cardiovascular: regular rate and rhythm, no murmur, no pedal edema or varicosities. Gastrointestinal: soft, non distended, no tenderness, no masses, no palpable hernias, diastasis recti no, no hepatosplenomegaly; normal bs Lymphatic: no cervical adenopathy, no supraclavicular adenopathy. Musculoskeletal: normal gait, digits and nails without infection, nodes, cyanosis, clubbing. Skin: no rashes, no lesions, no ulcers, no subcutaneous nodules, induration. Psychiatric/Neuro: oriented to time, place, person, judgement normal, affect appropriate for age, insight intact, no focal deficits. Tests: labs reviewed review of old records completed , Discussed surgical options, risks, and possible complications with patient. Assessment/Plan 1. Positive occult stool blood test (R19.5: Other fecal abnormalities) plan colonoscopy under anesthesia, informed consent obtained. Follow-up No qualifying data available Problem List/Past Medical History Ongoing Anxiety and depression Cystitis Diabetes Feeling of incomplete bladder emptying Hypercholesterolemia Hyperlipidemia Osteopenia Positive occult stool blood test Sleep apnea Stress incontinence Urinary urgency Historical No qualifying data Procedure/Surgical History Abdominoplasty, Breast reduction, Endometrial ablation, Hemorrhoidectomy, Tonsillectomy, VH - Vaginal hysterectomy. Medications Mounjaro 2.5 mg/0.5 mL subcutaneous solution Allergies penicillin (Unknown) Social History Alcohol Never., 03/31/2024 Substance Abuse Never., 03/31/2024 Tobacco 10 or more cigarettes (1/2 pack or more)/day in last 30 days Tobacco Use:. Never Smokeless Tobacco Use:. Cigarettes, 0.5 per day. Started age 19.0 Years., 04/05/2024 Family History Diabetes mellitus type 2: Father and Brother. Heart disease: Father and Brother. High cholesterol: Father and Brother. Immunizations Vaccine Date Status SARS-CoV-2 (COVID-19) Ad26 vaccine 05/19/2021 Recorded SARS-CoV-2 (COVID-19) Ad26 vaccine 04/28/2021 Recorded [facility] Comment on above: Result Comment: Elec tronically Signed By: ROGELIO FOX, Samuel Andrade\Date and Time Signed: 04/05/24 13:51 EST History of Present illness Narrative 06-06-2023 Yamilet [...] nursing note reviewed. Exam conducted with a mission support specialist present. Vitals: Estimated body mass index is [...] Terry Gillis DO documented in this encounter [facility] Discharge instructions 08-12-2021 Note Date & Type [...] Up Care 07/27/2021 12:01:15 With:FRANCESCO CHAKRABORTY Address: [address] [facility] [place] [place] [address] Business (1) When: Unknown Comments:Please make an appointment with Maia Chakraborty for about 4 to 6 weeks from now. She can assess any improvement in the urinary symptoms. If the pelvic discomfort symptoms continue, perhaps we should consider some physical therapy in that area.Please finish your antibiotics and have a great day. [facility] Discharge instructions 07-21-2021 Note Date & [...] fried and sweet foods. General instructions Take [id number]-jbr-[id number] and prescription medicines only as told by [...] 02/04/2010 Document Revised: 08/01/2019 Document Reviewed: 04/26/2018 [employer] Patient Education 2020 [employer]. Follow Up Care 06/25/2021 10:48:50 With:FRANCESCO CHAKRABORTY PA-C, URL Address: [address] [place] [address] Business (1) When: Unknown [facility] Evaluation + Plan note Note Date & Type Note Facility Evaluation + Plan note No data available for this section [facility] Evaluation + Plan note Note Date & Type Note Facility Evaluation + Plan note Future Appointments Appointment Date:09/15/2021 03:15:00 PM Scheduled Provider:FRANCESCO CHAKRABORTY PA-C Location:[facility] Appointment Type:URO Office Visit [facility] Evaluation note Note Date & Type Note Facility Evaluation note Diagnosis Well woman exam with routine gynecological exam Routine gynecological examination Breast cancer screening by mammogram Postmenopausal state Asymptomatic postmenopausal status (age-related) (natural) documented in this encounter [facility] Evaluation note Note Date & Type Note Facility Evaluation note Diagnosis Onset Date Acute cough acute Pleurisy acute [facility] Work Phone: Hospital Discharge instructions Note Date & Type Note Facility Hospital Discharge instructions No data available for this section [facility] [place] Progress note Note Date & Type Note Facility Progress note No data available for this section [facility] [place] Summary Purpose Family History No Family History Records FoundNo Family History Records FoundNo Family History Records Found No data available for this section No Family History Records Found Advance Directives No Advanced Directives Records Found Advance Directive Response Recorded Date/ Time Advance Directives No May 12:03pm Chief Complaint and Reason for Visit Chief Complaint Cough Reason for Visit Acute cough Pleurisy Additional Source Comments INFORMATION SOURCE (unrecogn ized section and content) DATE CREATED AUTHOR 06/08/2022 [facility] DATE CREATED AUTHOR AUTHOR'S ORGANIZ ATION 06/08/2023 [facility] EPIC DATE CREATED AUTHOR AUTHOR'S ORGANIZ ATION 09/07/2023 [facility] DATE CREATED AUTHOR AUTHOR'S ORGANIZ ATION 04/08/2024 [facility] Reason for Visit (unrecogniz ed section and content) Reason Comments [facility] Visit Care Teams (unrecognized sec tion and content) Silverware Buffer Relationship Specialty Start Date End Date [facility] [place] [address] [place] [address] PCP - General 06/05/23 Team [...] BE BASED ON THE PRIMARY CLINICAL RECORDS. [facility] provides no warranty or guarantee of the accuracy or completeness of information in this document.
== END 2024-04-12 14:35 | disposition home or self-care (01) ==
LOC: PST 14:35
PROVIDERS: PCP Family Medicine; Visit Provider Surgery
DX: R19.5 Other fecal abnormalities (principal)